=== PATIENT | female | born 1980 | race Caucasian/White ===

== ENCOUNTER 2017-11-18 17:00 | Emergency (ER) | payer OTHER, SELFPAY ==
--- OUTSIDE RECORDS SUMMARY | 2017-11-18 17:02 | XMS REPORT | Continuity of Care Document ---
:1980 Author Organization Interface Problems Problem Status Onset Date Classification Date Comments Source Reported Medications Medication Details Route Status Patient Ordering Order Source Instructions Provider Date Allergies, Adverse Reactions, Alerts Substance Category Reaction Severity Reaction Status Date Comments Source type Reported Immunizations Immunization Date Given Site Status Last Updated Comments Source Results Order Results Value Reference Date Interpretation Comments Source Name Range Vital Signs Vital Sign Value Date Comments Source Encounters Location Location Encounter Encounter Reason Attending ADM DC Status Source Details Type Number For Provider Date Date Visit Outpatient [id number] RODRIGO 02/28 [facility] Procedures Procedure Code Date Perfomer Comments Source
[2017-11-18] MEDS ORDERED: MORPHINE 4 MG/ML SYR ONE ×2 (17:30→19:57)
[2017-11-18] MEDS ORDERED: NA CHLORIDE 0.9% 1,000 ML ONE (17:31)
[2017-11-18] MEDS ORDERED: ONDANSETRON 4 MG/2 ML VIAL ONE ×2 (17:31→19:57)
[2017-11-18 18:06] LABS: Potassium 4.1 mmol/L (3.5-5.1)
[2017-11-18 18:52] LABS: Absolute Lymphocytes (CBC) 1.9 K/uL (0.7-4.9); Absolute Monocytes 0.8 K/uL (0.1-1.3); Basophils % 0.6 % (0-1.3); Eosinophils % 0.7 % (0-4.4); Hematocrit 41.6 % (36.0-45.0); Lymphocytes % 24.8 % (15.3-44.8); MCH 32.2 pg (27.0-35.0); MCV 96.3 fL (80-100); MPV 8.6 fL (7.6-11.3); Monocytes % 9.8 % (3.3-12.3); RBC Red Blood Cell Count 4.32 M/uL (3.86-4.86)
--- NOTE | 2017-11-18 19:51 | RAD REPORT ---
EXAM DESCRIPTION: CT - Abdomen Pelvis W Contrast - 11/18/2017 7:26 pm CLINICAL HISTORY: ABD PAIN right lower quadrant pain TECHNIQUE: Computed axial tomography of the abdomen pelvis was obtained. 100 cc Isovue-300 was admin istered intravenously. Oral contrast was not requested which limits evaluation of bowel. All CT scans are performed using dose optimization technique as appropriate and may include automated exposure control or mA/KV adjustment according to patient size. FINDINGS: The liver, spleen, pancreas, adrenal and kidneys appear unremarkable. There is no evidence of diverticulitis. The appendix is normal. A hysterectomy has been performed A small umbilical hernia is present. An adnexal mass is not seen IMPRESSION: No acute abnormality is displayed.
[2017-11-18 20:39] LABS: Urine Blood NEGATIVE (NEG); Urine Glucose NEGATIVE (NEG); Urine Protein NEGATIVE (NEG); Urine Specific Gravity 1.015 (1.005-1.030); Urine pH 8.5 (5.0-7.0)
--- NOTE | 2017-11-18 20:56 | ER ---
Nurse's Notes [facility] Name: Gali Sagastume Age: 37 yrs Sex: Female : 1980 Arrival Date: 11/18/2017 Time: 17:03 Bed 13 Private MD: Jodie De La Fuente Diagnosis: Generalized abdominal pain Presentation: 11/18 17:11 Presenting complaint: Patient states: "i have this abd pain since this morning, right hj here on my R lower abd, i feel nauseated too, denies diarrhea, constipation, denies fever, reports chills;. Transition of care: patient was not received from another setting of care. Onset of symptoms was November 18, 2017. Risk Assessment: Do you want to hurt yourself or someone else? Patient reports no desire to harm self or others. Initial Sepsis Screen: Does the patient meet any 2 criteria? Yes Does the patient have a suspected source of infection? No. Patient's initial sepsis screen is negative. Care prior to arrival: None. 17:11 Method Of Arrival: Ambulatory 17:11 Acuity: LAINEY 3 hj Triage Assessment: 17:16 General: Appears in no apparent distress. uncomfortable, Behavior is calm, cooperative, hj appropriate for age. Pain: Complains of pain in abdomen. GI: Reports lower abdominal pain, nausea. 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 - Social history:: Smoking status: Patient/guardian denies using tobacco, Patient/guardian denies using alcohol. - Ebola Screening: : Patient negative for fever greater than or equal to 101.5 degrees Fahrenheit, and additional compatible Ebola Virus Disease symptoms Patient denies exposure to infectious person Patient denies travel to an Ebola-affected area in the 21 days before illness onset. Screenin:15 Abuse screen: Denies threats or abuse. Denies injuries from another. Nutritional hj screening: No deficits noted. Tuberculosis screening: No symptoms or risk factors identified. Fall Risk None identified. Assessment: 17:16 GI: Bowel sounds present X 4 quads. Abd is soft Abdomen is tender to palpation. hj 17:16 General: Appears in no apparent distress. uncomfortable, Behavior is calm, cooperative, hj appropriate for age. Pain: Complains of pain in abdomen and right lower quadrant. Neuro: Level of Consciousness is awake, alert, obeys commands, Oriented to person, place, time, situation, Appropriate for age. Cardiovascular: Capillary refill < 3 seconds Patient's skin is warm and dry. Respiratory: Airway is patent Respiratory effort is even, unlabored, Respiratory pattern is regular, symmetrical. GI: Reports lower abdominal pain, nausea. : No signs and/or symptoms were reported regarding the genitourinary system. EENT: No signs and/or symptoms were reported regarding the EENT system. Derm: No signs and/or symptoms reported regarding the dermatologic system. Musculoskeletal: No signs and/or symptoms reported regarding the musculoskeletal system. 17:48 Reassessment: Patient and/or family updated on plan of care and expected duration. Pain hj level reassessed. Patient is alert, oriented x 3, equal unlabored respirations, skin warm/dry/pink. drinking oral contrast;l. 17:50 Reassessment: finished drinking contrast, healthcare technician informed;. hj 18:22 Reassessment: Patient and/or family updated on plan of care and expected duration. Pain hj level reassessed. Patient is alert, oriented x 3, equal unlabored respirations, skin warm/dry/pink. pain went down to 6/10;. 18:34 Reassessment: Patient and/or family updated on plan of care and expected duration. Pain hj level reassessed. Patient is alert, oriented x 3, equal unlabored respirations, skin warm/dry/pink. labs for re collect;. 19:15 General: Appears in no apparent distress. Behavior is calm, cooperative, appropriate ea for age. Pain: Complains of pain in right lower quadrant and right upper quadrant. Neuro: Level of Consciousness is awake, alert, obeys commands, Oriented to person, place, time, situation, Appropriate for age. Cardiovascular: Heart tones S1 S2 present Patient's skin is warm and dry. Respiratory: Airway is patent Respiratory effort is even, unlabored, Respiratory pattern is regular, symmetrical, Breath sounds are clear bilaterally. GI: Bowel sounds present X 4 quads. Abd is soft X 4 quads Abdomen is tender to palpation X 4 quads. Reports lower abdominal pain, nausea. : No signs and/or symptoms were reported regarding the genitourinary system. EENT: No signs and/or symptoms were reported regarding the EENT system. Derm: No signs and/or symptoms reported regarding the dermatologic system. Musculoskeletal: No signs and/or symptoms reported regarding the musculoskeletal system. 20:50 Reassessment: Patient and/or family updated on plan of care and expected duration. Pain ea level reassessed. Patient is alert, oriented x 3, equal unlabored respirations, skin warm/dry/pink. 21:34 Reassessment: Patient and/or family updated on plan of care and expected duration. Pain ea level reassessed. Patient is alert, oriented x 3, equal unlabored respirations, skin warm/dry/pink. Discharge instructions given to patient, verbalized the understanding of instructions. Patient states feeling better. Patient states symptoms have improved. Vital Signs: 17:15 BP 132 / 68; Pulse 76; Resp 18; Temp 97.5(O); Pulse Ox 100% on R/A; Weight 81.65 kg; hj Height 5 ft. 4 in. (162.56 cm); Pain 8/10; 18:22 BP 130 / 66; Pulse 75; Resp 18; Pulse Ox 100% on R/A; hj 19:10 BP 112 / 62; Pulse 66; Resp 18; Pulse Ox 99% on R/A; ea 20:30 BP 107 / 73; Pulse 72; Resp 66; Pulse Ox 98% on R/A; ea 21:20 BP 117 / 80; Pulse 72; Resp 18; Temp 97.8; Pulse Ox 98% ; Pain 0/10; ea 17:15 Body Mass Index 30.90 (81.65 kg, 162.56 cm) ED Course: 17:03 Patient arrived in ED. mr 17:04 Jodie De La Fuente MD is Private Physician. mr 17:06 Tyra Bledsoe FNP-C is [facility]. kb 17:06 Yoav Castro MD is Attending Physician. kb 17:10 Sinan Mckenna, NICOLA is Primary Nurse. hj 17:10 Initial lab(s) drawn, by ca, sent to lab. Inserted saline lock: 22 gauge in left hj forearm, using aseptic technique. Blood collected. 17:12 Triage completed. hj 17:16 Arm band placed on right wrist. hj 17:16 Patient has correct armband on for positive identification. Placed in gown. Bed in low hj position. Call light in reach. Side rails up X 1. Adult w/ patient. 19:00 Report given to NICOLA Quintana. hj 19:10 Lilian Gilliland RN is Primary Nurse. ea 19:26 CT Abd/Pelvis - W/Contrast In Process Unspecified. EDMS 21:34 No provider procedures requiring assistance completed. IV discontinued, intact, ea bleeding controlled, No redness/swelling at site. Pressure dressing applied. Administered Medications: 17:10 Drug: NS 0.9% 1000 ml Route: IV; Rate: 1000 ml; Site: left forearm; hj 17:42 Follow up: IV Status: Infusion continued hj 17:10 Drug: Zofran 4 mg Route: IVP; Site: left forearm; hj 17:41 Follow up: Response: No adverse reaction; Nausea is decreased hj 17:10 Drug: morphine 4 mg Route: IVP; Site: left forearm; hj 17:41 Follow up: Response: No adverse reaction; Pain is decreased hj 20:00 Drug: morphine 4 mg Route: IVP; Site: left forearm; ea 20:35 Follow up: Response: No adverse reaction; Pain is decreased ea 20:00 Drug: Zofran 4 mg Route: IVP; Site: left forearm; ea 20:30 Follow up: Response: No adverse reaction ea 21:26 Drug: Bentyl 20 mg Route: PO; ea 21:39 Follow up: Response: No adverse reaction; Medication administered at discharge. ea Outcome: 20:56 Discharge ordered by . kb 21:35 Discharged to home ambulatory, with significant other. ea 21:35 Condition: improved 21:35 Discharge instructions given to patient, Instructed on discharge instructions, follow up and referral plans. medication usage, Demonstrated understanding of instructions, follow-up care, medications, Prescriptions given X 2. 21:37 Patient left the ED. ea Signatures: Dispatcher [employer] EDTyra Reyes, JUDE BATES-Hannah Leonardo Henry, RN RN hj Antunez, Elena, RN RN ea
--- NOTE | 2017-11-18 20:56 | EDPHYS ---
Physician Documentation [facility] Name: Gali Sagastume Age: 37 yrs Sex: Female : 1980 Arrival Date: 11/18/2017 Time: 17:03 Bed 13 Private MD: Jodie De La Fuente ED Physician Yoav Castro HPI: 11/18 17:14 This 37 yrs old Female presents to ER via Ambulatory with complaints of kb Abdominal Pain, Nausea. 17:14 The patient presents with abdominal pain right lower quadrant. Onset: The kb symptoms/episode began/occurred this morning. The symptoms radiate to right back. Associated signs and symptoms: Pertinent positives: nausea, Pertinent negatives: anorexia, blood in stools, chest pain, constipation, diarrhea, dysuria, fever, headache, hematuria, palpitations, shortness of breath, vaginal discharge, vomiting, vomiting blood. The symptoms are described as constant. Modifying factors: The symptoms are alleviated by nothing, the symptoms are aggravated by nothing. Severity of pain: At its worst the pain was moderate in the emergency department the pain is unchanged. The patient has not experienced similar symptoms in the past. The patient has not recently seen a physician. 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 - Social history:: Smoking status: Patient/guardian denies using tobacco, Patient/guardian denies using alcohol. - Ebola Screening: : Patient negative for fever greater than or equal to 101.5 degrees Fahrenheit, and additional compatible Ebola Virus Disease symptoms Patient denies exposure to infectious person Patient denies travel to an Ebola-affected area in the 21 days before illness onset. ROS: 17:14 Constitutional: Negative for fever, chills, and weight loss, ENT: Negative for injury, kb pain, and discharge, Neck: Negative for injury, pain, and swelling, Cardiovascular: Negative for chest pain, palpitations, and edema, Respiratory: Negative for shortness of breath, cough, wheezing, and pleuritic chest pain, Back: Negative for injury and pain, : Negative for injury, bleeding, discharge, and swelling, MS/Extremity: Negative for injury and deformity, Skin: Negative for injury, rash, and discoloration, Neuro: Negative for headache, weakness, numbness, tingling, and seizure. 17:14 Abdomen/GI: Positive for abdominal pain, nausea, Negative for vomiting, diarrhea, constipation, abdominal cramps, abdominal distension, anorexia. Exam: 17:14 Constitutional: This is a well developed, well nourished patient who is awake, alert, kb and in no acute distress. Head/Face: Normocephalic, atraumatic. ENT: Nares patent. No nasal discharge, no septal abnormalities noted. Tympanic membranes are normal and external auditory canals are clear. Oropharynx with no redness, swelling, or masses, exudates, or evidence of obstruction, uvula midline. Mucous membranes moist. Neck: Trachea midline, no thyromegaly or masses palpated, and no cervical lymphadenopathy. Supple, full range of motion without nuchal rigidity, or vertebral point tenderness. No Meningismus. Chest/axilla: Normal chest wall appearance and motion. Nontender with no deformity. No lesions are appreciated. Cardiovascular: Regular rate and rhythm with a normal S1 and S2. No gallops, murmurs, or rubs. Normal PMI, no JVD. No pulse deficits. Respiratory: Lungs have equal breath sounds bilaterally, clear to auscultation and percussion. No rales, rhonchi or wheezes noted. No increased work of breathing, no retractions or nasal flaring. Back: No spinal tenderness. No costovertebral tenderness. Full range of motion. Skin: Warm, dry with normal turgor. Normal color with no rashes, no lesions, and no evidence of cellulitis. MS/ Extremity: Pulses equal, no cyanosis. Neurovascular intact. Full, normal range of motion. Neuro: Awake and alert, GCS 15, oriented to person, place, time, and situation. Cranial nerves II-XII grossly intact. Motor strength 5/5 in all extremities. Sensory grossly intact. Cerebellar exam normal. Normal gait. 17:14 Abdomen/GI: Inspection: abdomen appears normal, Bowel sounds: normal, in all quadrants, Palpation: soft, in all quadrants, mild abdominal tenderness, in the right upper quadrant and right lower quadrant. Vital Signs: 17:15 BP 132 / 68; Pulse 76; Resp 18; Temp 97.5(O); Pulse Ox 100% on R/A; Weight 81.65 kg; hj Height 5 ft. 4 in. (162.56 cm); Pain 8/10; 18:22 BP 130 / 66; Pulse 75; Resp 18; Pulse Ox 100% on R/A; hj 19:10 BP 112 / 62; Pulse 66; Resp 18; Pulse Ox 99% on R/A; ea 20:30 BP 107 / 73; Pulse 72; Resp 66; Pulse Ox 98% on R/A; ea 21:20 BP 117 / 80; Pulse 72; Resp 18; Temp 97.8; Pulse Ox 98% ; Pain 0/10; ea 17:15 Body Mass Index 30.90 (81.65 kg, 162.56 cm) hj MDM: 17:08 Patient medically screened. kb 17:14 Data reviewed: vital signs, nurses notes. Data interpreted: Pulse oximetry: on room air kb is 100 %. Interpretation: normal. 20:52 Counseling: I had a detailed discussion with the patient and/or guardian regarding: the kb historical points, exam findings, and any diagnostic results supporting the discharge/admit diagnosis, lab results, radiology results, the need for outpatient follow up, a family practitioner, to return to the emergency department if symptoms worsen or persist or if there are any questions or concerns that arise at home. 11/18 17:09 Order name: CBC with Diff; Complete Time: 18:59 kb 11/18 17:09 Order name: Basic Metabolic Panel; Complete Time: 18:14 kb 11/18 18:10 Order name: Urine Dipstick--Ancillary (enter results); Complete Time: 20:48 eb 11/18 17:09 Order name: CT Abd/Pelvis - W/Contrast; Complete Time: 19:59 kb 11/18 17:09 Order name: IV Saline Lock; Complete Time: 17:37 kb 11/18 17:09 Order name: Labs collected and sent; Complete Time: 17:37 kb 11/18 17:09 Order name: Urine Dipstick-Ancillary (obtain specimen); Complete Time: 18:06 kb 11/18 18:02 Order name: Labs - recollect needed; Complete Time: 18:59 eb Administered Medications: 17:10 Drug: NS 0.9% 1000 ml Route: IV; Rate: 1000 ml; Site: left forearm; hj 17:42 Follow up: IV Status: Infusion continued hj 17:10 Drug: Zofran 4 mg Route: IVP; Site: left forearm; hj 17:41 Follow up: Response: No adverse reaction; Nausea is decreased hj 17:10 Drug: morphine 4 mg Route: IVP; Site: left forearm; hj 17:41 Follow up: Response: No adverse reaction; Pain is decreased hj 20:00 Drug: morphine 4 mg Route: IVP; Site: left forearm; ea 20:35 Follow up: Response: No adverse reaction; Pain is decreased ea 20:00 Drug: Zofran 4 mg Route: IVP; Site: left forearm; ea 20:30 Follow up: Response: No adverse reaction ea 21:26 Drug: Bentyl 20 mg Route: PO; ea 21:39 Follow up: Response: No adverse reaction; Medication administered at discharge. ea Disposition: 11/18/17 20:56 Discharged to Home. Impression: Generalized abdominal pain. - Condition is Stable. - Discharge Instructions: Abdominal Pain, Adult, [id number]. - Prescriptions for Bentyl 20 mg Oral Tablet - take 1 tablet by ORAL route every 6 hours As needed; 20 tablet. Zofran 4 mg Oral Tablet - take 1 tablet by ORAL route every 6 hours As needed; 20 tablet. - Medication Reconciliation Form, Thank You Letter, Antibiotic Education, Prescription Opioid Use form. - Follow up: Emergency Department; When: As needed; Reason: Worsening of condition. Follow up: Private Physician; When: 2 - 3 days; Reason: Recheck today's complaints, Continuance of care, Re-evaluation by your physician. Addendum: 11/22/2017 07:15 Co-signature as Attending Physician, Yoav Castro MD I agree with the assessment and k dr plan of care. Signatures: Dispatcher [employer] EDMS Tyra Bledsoe, PRODUCT MANAGER E COMMERCE-C PRODUCT MANAGER E COMMERCE-Yoav Santos MD MD kdr Joaquin, Henry RN Lilian Vigil RN RN ea Botello, Elizabeth eb Corrections: (The following items were deleted from the chart) 11/18 21:37 20:56 11/18/2017 20:56 Discharged to Home. Impression: Generalized abdominal pain. ea Condition is Stable. Discharge Instructions: Abdominal Pain, Adult, [id number]. Prescriptions for Bentyl 20 mg Oral Tablet - take 1 tablet by ORAL route every 6 hours As needed; 20 tablet, Zofran 4 mg Oral Tablet - take 1 tablet by ORAL route every 6 hours As needed; 20 tablet. and Forms are Medication Reconciliation Form, Thank You Letter, Antibiotic Education, Prescription Opioid Use. Follow up: Emergency Department; When: As needed; Reason: Worsening of condition. Follow up: Private Physician; When: 2 - 3 days; Reason: Recheck today's complaints, Continuance of care, Re-evaluation by your physician. kb
[2017-11-18] MEDS ORDERED: DICYCLOMINE HCL 10 MG CAP ONE (21:28)
[2017-11-18 21:48] VITALS: O2SAT 98
[2017-11-18 21:50] VITALS: BP 117/80; TEMP 97.8
== END 2017-11-18 21:37 | disposition home or self-care (01) ==
LOC: ER 17:00
DX: R10.84 Generalized abdominal pain (principal); K21.9 Gastro-esophageal reflux disease without esophagitis; Z88.8 Allergy status to other drugs, medicaments and biological substances
CPT/HCPCS: 36415; 74177; 80048; 81003; 85025; 96361; 96374; 96375; 99284; J2405; J7030; Q9967

== ENCOUNTER 2019-12-09 09:53 | Emergency (ER) | payer SELFPAY ==
--- OUTSIDE RECORDS SUMMARY | 2019-12-09 09:56 | XMS REPORT | Continuity of Care Document ---
:1980 Author Organization [facility] t Address [address] [place] [address] Care Team Providers Name Role Phone Emily Banks Attending Clinician Problems Condition Condition Condition Status Onset Resolution Last Treating Co mments Source Name Details Category Date Date Treatment Clinician Date Upper Upper Problem Active [facility] resp[facility] respirator Ivana kes - y y [facility] infection, infection, l [facility] Panic Panic Problem Active [facility] attacks [facility] GERD GERD Problem Active [facility] without without [facility] - esophagiti esophagiti Me moria s s l [facility] Allergic Allergic Problem [facility] Fatigue Fatigue Problem Active [facility] Bipolar Bipolar Problem Active [facility] affective, affective, Ivana kes - manic, manic, Memoria unspec unspec l [facility] Atypical Atypical Problem [facility] chest pain chest pain Ivana kes - [facility] Irritable Irritable Problem Active [facility] bowel bowel [facility] Ovarian Ovarian Problem Active [facility] cyst cyst [facility] Depression Depression Problem Active [facility] with with [facility] - anxiety anxiety [facility] l [facility] Allergies, Adverse Reactions, Alerts This patient has no known allergies or adverse reactions. Medications Ordered Filled Start Stop Current Ordering Indication Dosage Frequency Signature Comments Components Source Medication Medication Date Date Medication? Clinician (SIG) Name Name Tamsulosin Tamsulosin 2020- Yes Na De La Fuente [address] [facility] HCl HCl 12-03 [facility] 00[facility] Cipro Cipro 2020- Yes Na De La Fuente [address] [facility] 12-03 [facility] Famotidine Famotidine Yes Na De La Fuente [address] [facility] 9-14 at bedtime [facility] 00[facility]: as needed [facility] Protonix Protonix Yes Na De La Fuente [address] [facility] Fluoxetine Fluoxetine Yes Na De La Fuente [address] [facility] HCl HCl [facility] Clinics Xanax Xanax Yes Na De La Fuente [address] [facility] Procedures This patient has no known procedures. Encounters Start End Encounter Admission Attending Care Care Encounter Source Date/Time Date/Time Type Type Clinicians Facility Department ID 2019-12-04 2019-12-04 [facility] [id number] [facility] 11:04:00 11:04:00 [facility] [facility] Medicine Medicine Outpati ent [facility] 2019-12-03 2019-12-03 [facility] [id number] 00:00:00 00:00:00 Winter Diaz SENIOR DESIGN ENGINEERING SPECIALIST [id number] [facility] [id number] MATERNAL [id number] & CHILD [address] [place] [address] 2019-12-01 2019-12-01 [facility] [id number] [facility] 08:20:00 08:20:00 [facility] Medicine Medicine Outpati ent Clinics 2019-08-05 2019-08-05 [facility] [id number] [facility] 09:40:00 09:40:00 [facility] Medicine Outpati ent Clinics 2019-05-29 2019-05-29 [facility] [id number] [facility] 10:40:00 10:40:00 [facility] 2019-05-19 2019-05-19 Outpatient Norma Abdalla [id number] [facility] 09:[facility] 09[facility]42[facility]00 [facility] Results This patient has no known results.
--- OUTSIDE RECORDS SUMMARY | 2019-12-09 09:56 | XMS REPORT | Summary of Care ---
:1980 Author Organization [facility] Address [address] [place] [address] Care Team Providers Name Role Phone Emily Banks [facility] Primary Care Provider Reason for Visit Reason Comments Well Woman Exam Encounter Details Date Type Department Care Team Description 11/25/2019 Office Visit [facility] Banks for other contraceptive management (Primary Dx); Sandro Diaz SILAS History of partial hysterectomy; [address] Well woman exam; Street ESTELITA A Dysuria; [place] [phone] Family history of thyroid disease; [id number] Family history of diabetes mellitus; [phone] UTI sympt oms Allergies Active Allergy Reactions Severity Noted Date Comments Omeprazole Magnesium Hives 07/14/2016 documented as of this encounter (statuses as of 11/25/2019) Medications Medication Sig Dispensed Refills Start Date End Date Status PANTOPRAZOLE SODIUM Take 40 mg by 0 Active (PROTONIX mouth daily. ORAL)Indications: Atypical chest pain ergocalciferol, Take 50,000 Units 0 Active vitamin d2, 50,000 by mouth daily. unit capsule ALPRAZolam 0.25 mg Take 0.25 mg by 0 Active tablet mouth daily. escitalopram oxalate TAKE ONE (1) 5 06/27/2018 Active 20 mg tablet TABLET(S) BY MOUTH ONCE A DAY. cephALEXin 500 mg Take 1 capsule by 40 capsule 0 07/23/2018 Active capsuleIndications: mouth 4 (four) Dysuria, Urinary times daily. frequency lurasidone (LATUDA) 20 Take by mouth 0 Active mg tablet daily. SERTraline (ZOLOFT) 25 Take 25 mg by 0 Active mg tablet mouth daily. documented as of this encounter (statuses as of 11/25/2019) Active Problems Problem Noted Date UTI (urinary tract infection) 04/21/2019 History of partial hysterectomy 11/19/2018 Overview: Reports still has ovaries History of depression 11/19/2018 Overview: Currently on zolft and latuda, managed b y [facility] History of anxiety 11/19/2018 Well woman exam 09/15/2015 Obesity (BMI 30-39.9) 11/11/2014 Overview: ICD10 Diagnosis Term Tubular Splitting Machine Tender Utility Contraceptive management 09/16/2014 IBS (irritable bowel syndrome) 05/13/2012 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 documented as of this encounter (statuses as of 11/25/2019) Resolved Problems Problem Noted Date Resolved Date Dysuria 11/07/2017 11/19/2018 Urinary frequency 11/07/2017 11/19/2018 Urgency of urination 11/07/2017 11/19/2018 Dysmenorrhea 04/09/2015 11/19/2018 Bacterial vaginosis 04/09/2015 09/15/2015 Constipation 11/12/2014 01/07/2015 Overview: ICD10 Diagnosis Term Tubular Splitting Machine Tender Utility BV (bacterial vaginosis) 11/11/2014 01/07/2015 Female genital symptoms 11/11/2014 11/11/2014 Overview: ICD10 Diagnosis Term Tubular Splitting Machine Tender Utility Abdominal pain, other specified site 11/11/2014 Obesity complicating , childbirth, or puerperium, 0 09/16/2014 11/11/2014 antepartum Overview: ICD10 Diagnosis Term Tubular Splitting Machine Tender Utility Encounter for routine gynecological examination 09/16/2014 11/11/2014 Overview: ICD10 Diagnosis Term Tubular Splitting Machine Tender Utility Mood swings 09/16/2014 11/11/2014 Multiparity 07/25/2012 09/16/2014 Perineal laceration with delivery, first degree, delivered 0 07/24/2012 08/08/2012 Threatened premature labor, antepartum(644.03) 07/17/2012 07/24/2012 Glycosuria 05/30/2012 07/24/2012 Overview: Normal 3 hour GTT. Fasting- 70, 1 hour - 137, 2 hour- 149, 3 hour - 79. Other threatened labor, antepartum 05/23/201207/24 Supervision of other high-risk 05/13/2012 07/24/2012 Overview: ICD10 Diagnosis Term Tubular Splitting Machine Tender Utility High-risk 05/13/2012 07/24/2012 Prior labor, antepartum 05/13/2012 07/25/19 13 with poor reproductive history- prior PTB 05/13/19 13 07/24/2012 documented as of this encounter (statuses as of 11/25/2019) Immunizations Name Administration Dates Next Due TDAP 06/03/2012 documented as of this encounter Social History Tobacco Use Types Packs/Day Years Used Date Never Smoker Smokeless Tobacco: Never Used Alcohol Use Drinks/Week oz/Week Comments Yes 0 Standard drinks or equivalent 0.0 socially Sex Assigned at Date Recorded Not on file COVID-19 Exposure Response Date Recorded In the last month, have you been in contact with No / Unsure 11/25/2019 8:45 AM CDT someone who was confirmed or suspected to have Coronavirus / COVID-19? documented as of this encounter Last Filed Vital Signs Vital Sign Reading Time Taken Comments Blood Pressure 118/74 11/25/2019 9:03 AM CDT Pulse 57 11/25/2019 9:03 AM CDT Temperature 36.6 C (97.8 F) 11/25/2019 9:03 AM CDT Respiratory Rate 16 11/25/2019 9:03 AM CDT Oxygen Saturation - - Inhaled Oxygen Concentration - - Weight 92.6 kg (204 lb 1 oz) 11/25/2019 9:03 AM CDT Height 162.6 cm (5' 4") 11/25/2019 9:03 AM CDT Body Mass Index 35.03 11/25/2019 9:03 AM CDT documented in this encounter Progress Notes Winter Banks, WHCNP - 11/25/2019 8:45 AM CDT Chief complaint: Chief Complaint Patient presents with Well Woman Exam HPI: the patient is here today for WWE and contraceptive management. She reports she is doing well for the most part, but reports uti symptoms for the past week, she reports she took AZO tablets otc last 2 days ago. She denies any new sexual partners and reports hysterectomy for control and is pleased with her method. She desires lab work today, reporting familty history of thyroid and diabetes. Pt (denies) current or past physical, sexual or emotional abuse. Histories OB History Para Term AB Living 3 2 2 0 1 2 SAB TAB Ectopic Multiple Live Births 1 2 # Outcome Date GA Lbr Fernando/2nd Weight Sex Delivery Anes PTL Lv 3 Term 07/24/12 37w0d 6 lb 8 oz (2.948 kg) M NORMAL SPONT COLIN 2 Term 09/08/07 37w0d 12:00 6 lb 10 oz (3.005 kg) M NORMAL SPONT EPIDURAL Y COLIN Comments: delivery 1 SAB 10w0d Past Medical History: Diagnosis Date Abnormal Pap smear 2003 colposcopy performed Anxiety 2002 pt on medications, managed by [facility] Bipolar 1 disorder 2018 pt on meds, managed by [facility] BV (bacterial vaginosis) 11/11/2014 Depression 2018 pt on meds, managed by [facility] Dysmenorrhea 04/09/2015 HPV in female Mood swings 09/16/2014 Oral herpes simplex, not currently active STD (sexually transmitted disease) Family History Problem Relation Age of Onset Hypertension Father Neurological Father Parkinsons disease Father Depression Mother High cholesterol Mother Ovarian Cancer Paternal Aunt Arthritis NoFHx Asthma NoFHx defects NoFHx Breast Cancer NoFHx Colon Cancer NoFHx Uterine Cancer NoFHx Cancer NoFHx Diabetes NoFHx Genetic NoFHx Heart NoFHx Mental retardation NoFHx Osteoporosis NoFHx Psychiatry NoFHx Other - see comments NoFHx Family Status Relation Name Status Fa Alive Mo Alive PAunt NoFHx (Not Specified) Past Surgical History: Procedure Laterality Date HYSTERECTOMY 2016 Partial per pt report. Social History Socioeconomic History Marital status: Spouse name: Not on file Number of children: Not on file Years of education: Not on file Highest education level: Not on file Occupational History Not on file Social Needs Financial resource strain: Not on file Food insecurity Worry: Not on file Inability: Not on file Transportation needs Medical: Not on file Non-medical: Not on file Tobacco Use Smoking status: Never Smoker Smokeless tobacco: Never Used Substance and Sexual Activity Alcohol use: Yes Alcohol/week: 0.0 standard drinks Comment: socially Drug use: No Sexual activity: Yes Partners: Male control/protection: Surgical Comment: Last intercourse:11/11/2019 Lifestyle Physical activity Days per week: Not on file Minutes per session: Not on file Stress: Not on file Relationships Social connections Talks on phone: Not on file Gets together: Not on file Attends church service: Not on file Active member of club or organization: Not on file Attends meetings of clubs or organizations: Not on file Relationship status: Not on file Intimate partner violence Fear of current or ex partner: Not on file Emotionally abused: Not on file Physically abused: Not on file Forced sexual activity: Not on file Other Topics Concern Not on file Social History Narrative Denies domestic violence or abuse. Patient lives with and children. Patient feels safe at home. Social History Substance and Sexual Activity Sexual Activity Yes Partners: Male control/protection: Surgical Comment: Last intercourse:11/11/2019 Labs Labs are pending. Radiology No new radiology. Allergies Gali is allergic to prilosec [omeprazole magnesium]. Medications Gali has a current medication list which includes the following prescription(s): lurasidone, sertraline, cephalexin, escitalopram oxalate, alprazolam, ergocalciferol (vitamin d2), and pantoprazole sodium. Review of Systems Constitutional: Negative. HENT: Negative. Eyes: Negative. Respiratory: Negative. Breasts: Negative. Cardiovascular: Negative. Gastrointestinal: Negative. Genitourinary: Negative. Musculoskeletal: Negative. Skin: Negative. Neurological: Negative. Psychiatric/Behavioral: Negative. Endocrine: Endocrine negative BP 118/74 (BP Location: Right arm, Patient Position: Sitting, BP CUFF SIZE: Adult Medium) | Pulse 57 | Temp 36.6 C (97.8 F) (Oral) | Resp 16 | Ht 5' 4" (1.626 m) | Wt 204 lb 1 oz (92.6 kg) | LMP 02/17/2016 (Within Days) | BMI 35.03 kg/m Pregravid BMI: Could not be calculated Physical Exam Vitals reviewed. Constitutional: She is oriented to person, place, and time. She appears well- developed. Her body habitus is normal. Neck: No tenderness and no mass. No thyroid nodules and no thyromegaly palpated. No neck adenopathy. Cardiovascular: Regular rate and rhythm. No gallop, no friction rub and no murmur auscultated. No peripheral edema present. Pulmonary/Chest: Breath sounds clear to auscultation. Normal inspiratory effort. Abdominal: Abdomen is soft. No mass palpated. No tenderness present. There is no hepatosplenomegaly,splenomegaly or hepatomegaly. There is no rigidity. No hernia palpated or inspected. Neuro/Psychiatric: She has a normal mood and affect. She is oriented to person, place, and time. Skin: No lesion, no rash and no ulceration present. Lymphadenopathy: No neck adenopathy present. No axillary adenopathy present. No inguinal adenopathy present. Breast: Right breast exhibits no mass, no nipple discharge and no tenderness. Left breast exhibits no mass, no nipple discharge and no tenderness. Breasts are symmetrical. Normal left breast and normalright breast Rectal: Rectal exam with normal anal tone. No mass, no external hemorrhoid and no internal hemorrhoid palpated or inspected. External genitalia: Normal external genitalia appropriate for age. Normal hair distribution. No labial lesion. Urethral meatus: Normal urethral meatus size, location and no lesion. No prolapse present. Normal urethral meatus Urethra: Normal urethra. No urethral tenderness, no mass and no urethral scarring palpated. Bladder: Bladder has no fullness, no mass palpated and no tenderness. Normal bladder Vagina:Normal vagina. No lesion inspected. Normal estrogen effect. Normal support. No abnormal vaginal discharge found. No lesions in the vagina. Cervix: Normal cervix. No lesion. No tenderness and no discharge present. Uterus: Uterus is normal size, normal contour, normal position and non-tender. Normal uterus Adnexa: Right adnexa without tenderness, ovary enlargement or mass. Left adnexa without tenderness, ovary enlargement or mass. Normal left adnexa and normal right adnexa Anus/perineum: Normal perineum and normal anus. Assessment/Plan Return to clinic in 1 year for WWE or sooner as needed Return to clinic in 3 months for CBE for mammogram orders Rubella/VZV: immune BMI: 35 Td: 2012 Pap Smear: today Gardasil:na Mammogram/Guaiac/Colonoscopy:na Encounter for other contraceptive management (primary encounter diagnosis) History of partial hysterectomy Comment: routine Plan: as needed mgmt Well woman exam Comment: routine Plan: PAP Smear-Liquid Based, HIGH RISK HPV-THIN PREP Dysuria UTI symptoms Comment: reports Plan: POCT URINALYSIS W/O SPECIFIC GRAVITY, URINE CULTURE Family history of thyroid disease Comment: reports Plan: THYROID STIMULATING HORMONE Family history of diabetes mellitus Comment: reports Plan: CBC WITH DIFF, GLYCOSYLATED HEMOGLOBIN (A1C) Obesity Comment: see BMI Plan: BMI discussed, appropriate weight gain, sensible diet, and exercise, increased fiber and waterintake and protein low in fat. Encouraged exercise for 30 min everyday; begin regimen with caution to prevent injury. Encouraged to decrease BMI to <25. This visit did not involve counseling and coordination that comprised more than 50% of the visit time. MICHAEL Weiss 11/25/2019 9:39 AM Stephanie Sullivan RN - 11/25/2019 8:45 AM CDT39 year old presents to the clinic for wwe. 1) Previous BCM: Hyst 2015 2) Desired BCM: None, hyst 2015 3) LMP: 2015 4) Last [place]: 11/11/2019 5) Last Pap: 09/14/2014 Results: Negative HPV: negative 6) Tdap: 2012 7) Gardasil: N/A 8) C/O: Pt having dysuria and frequency. 9) Patient denies history of physical, emotional, or sexual abuse. Patient states that she currently feels safe at home. STEPHANIE SULLIVAN RN 11/25/2019 9:12 AM documented in this encounter Plan of Treatment Date Type Specialty Care Team Description 02/24/2020 Office Visit [facility] Negra Banks [facility]NP [address] [place], [place] [address] [phone] Name Type Priority Associated Diagnoses Date/Ti me THYROID STIMULATING LAB Routine Family history of 10/2019 9:46 AM HORMONE thyroid disease CDT CBC WITH DIFF LAB Routine Family history of 0 9:46 AM diabetes mellitus CDT GLYCOSYLATED HEMOGLOBIN LAB Routine Family history of 11/25/2019 9:46 AM (A1C) diabetes mellitus CDT URINE CULTURE LAB Routine UTI symptoms 11/25/2019 9: 46 AM CDT PAP Smear-Liquid Based LAB Routine Well woman exam 9:55 AM CDT HIGH RISK HPV-THIN PREP LAB Routine Well woman exam 0 11/25/2019 9:55 AM CDT Health Maintenance Due Date Last Done Comments Breast Cancer Screening 03/21/2020 03/21/2019 (MAMMOGRAM) Depression Screening 07/28/2020 07/29/2019 INFLUENZA VACCINE (#1) 2020 Postponed from 11/18/2019 (Vacc ine not available) PAP SMEAR 12/18/2020 12/18/2017, 09/14/2014, 02/03/2011, Additional history exists DTaP,Tdap,and Td Vaccines 06/03/2022 06/03/2012 (2 - Td) PNEUMOCOCCAL 0-64 YEARS Aged Out No longe r eligible COMBINED SERIES based on patient 's age to complete this topic documented as of this encounter Procedures Procedure Name Priority Date/Time Associated Comments Diagnosis POCT URINALYSIS W/O Routine 11/25/2019 9:10 AM Dysuria R esults for this SPECIFIC GRAVITY CDT procedure a re in the results section. documented in this encounter Results POCT URINALYSIS W/O SPECIFIC GRAVITY (11/25/2019 9:10 AM CDT) Pathologist Sig nature POCT PH U 6 5 - 8 mg/dl POCT U LEUK EST Trace Negative - Negative POCT U NIT Neg Negative - Negative POCT U PROT Trace Negative - Negative POCT U GLU Neg Negative - Negative POCT U KETONE None Negative - Negative POCT U BLD Neg Negative - Negative Specimen Urine - URINE, CLEAN CATCH documented in this encounter Visit Diagnoses Diagnosis Encounter for other contraceptive manage ment - Primary History of partial hysterectomy Well woman exam Routine general medical examination at a health care facility Dysuria Family history of thyroid disease Family history of other endocrine and me tabolic diseases Family history of diabetes mellitus UTI symptoms documented in this encounter Insurance Payer Benefit Plan Subscriber ID Effective Phone Address Typ e / Group Dates [facility] [id number] 2017-Prese [phone] Medicaid WOMEN nt [address] [place] [address] documented as of this encounter Advance Directives Type Date Recorded Patient Intervention Manager Explanati on Advance Directives and Living Will Power of Bar Hostess Name Relationship Healthcare Agent Communication Relationship Ray Sagastume Spouse Health Care Agent
--- OUTSIDE RECORDS SUMMARY | 2019-12-09 09:57 | XMS REPORT | Summary of Care ---
:1980 Author Organization [facility] Address [address] [place] [address] Care Team Providers Name Role Phone Emily Banks [facility] Primary Care Provider Reason for Visit Reason Comments Results Encounter Details Date Type Department Care Team Description 12/02/2019 [facility] [address] [place] [address] Allergies Active Allergy Reactions Severity Noted Date Comments Omeprazole Magnesium Hives 07/14/2016 documented as of this encounter (statuses as of 12/03/2019) Medications Medication Sig Dispensed Refills Start Date [...] as of this encounter (statuses as of 12/03/2019) Active Problems Problem Noted Date UTI (urinary tract infection) 04/21/2019 History of partial hysterectomy 11/19/2018 Overview: Reports still has ovaries History of depression 11/19/2018 Overview: Currently on zolft and latuda, managed b y [facility] History of anxiety 11/19/2018 Well woman exam 09/15/2015 Obesity (BMI 30-39.9) 11/11/2014 Overview: ICD10 Diagnosis Term Chiller Technician Utility Contraceptive management 09/16/2014 IBS (irritable bowel syndrome) 05/13/2012 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 documented as of this encounter (statuses as of 12/03/2019) Resolved Problems Problem Noted Date Resolved Date Dysuria 11/07/2017 11/19/2018 Urinary frequency 11/07/2017 11/19/2018 Urgency of urination 11/07/2017 11/19/2018 Dysmenorrhea 04/09/2015 11/19/2018 Bacterial vaginosis 04/09/2015 09/15/2015 Constipation 11/12/2014 01/07/2015 Overview: ICD10 Diagnosis Term Chiller Technician Utility BV (bacterial vaginosis) 11/11/2014 01/07/2015 Female genital symptoms 11/11/2014 11/11/2014 Overview: ICD10 Diagnosis Term Chiller Technician Utility Abdominal pain, other specified site 11/11/2014 Obesity complicating , childbirth, or puerperium, 0 09/16/2014 11/11/2014 antepartum Overview: ICD10 Diagnosis Term Chiller Technician Utility Encounter for routine gynecological examination 09/16/2014 11/11/2014 Overview: ICD10 Diagnosis Term Chiller Technician Utility Mood swings 09/16/2014 11/11/2014 Multiparity 07/25/2012 09/16/2014 Perineal laceration with delivery, first degree, delivered 0 07/24/2012 08/08/2012 Threatened premature labor, antepartum(644.03) 07/17/2012 07/24/2012 Glycosuria 05/30/2012 07/24/2012 Overview: Normal 3 hour GTT. Fasting- 70, 1 hour - 137, 2 hour- 149, 3 hour - 79. Other threatened labor, antepartum 05/23/201207/24 Supervision of other high-risk 05/13/2012 07/24/2012 Overview: ICD10 Diagnosis Term Chiller Technician Utility High-risk 05/13/2012 07/24/2012 Prior labor, antepartum 05/13/2012 07/25/19 13 with poor reproductive history- prior PTB 05/13/19 13 07/24/2012 documented as of this encounter (statuses as of 12/03/2019) Immunizations Name Administration Dates Next Due TDAP [...] of this encounter Last Filed Vital Signs Not on filedocumented in this encounter Miscellaneous Notes Telephone Encounter - Jaqueline Wilson LVN - 12/03/2019 9:00 AM CDTAmber Kylah Sagastume is a 39 year old female Informed patient results were not completed yet. elephone Encounter - Praveen Martinez - 12/02/2019 7:20 AM CDTPatient would like to discuss results from urine test documented in this encounter Plan of Treatment Date Type Specialty Care Team Description 02/24/2020 [facility] [address] [place] [address] [phone] Health Maintenance Due Date Last Done Comments Breast Cancer Screening 03/21/2020 03/21/2019 (MAMMOGRAM) Depression Screening 07/28/2020 07/29/2019 INFLUENZA VACCINE (#1) 2020 Postponed from 11/18/2019 (Vacc ine not available) DTaP,Tdap,and Td Vaccines 06/03/2022 06/03/2012 (2 - Td) PAP SMEAR 11/24/2022 11/25/2019, 12/18/2017, 09/14/2014, Additional history exists PNEUMOCOCCAL 0-64 YEARS Aged Out No longe r eligible COMBINED SERIES based on patient 's age to complete this topic documented as of this encounter Results Not on filedocumented in this encounter Insurance Payer Benefit Plan Subscriber ID Effective Phone Address Typ e / Group Dates [id number] 2017-Alfredo [phone] Medicaid WOMEN [address] [place] [address] documented as of this encounter Advance Directives Type Date Recorded Patient Quality Control Lab Technician Explanati on Advance Directives and Living Will Power of Range Aide Name Relationship Healthcare Agent Communication Relationship Ray Sagastume Spouse Health Care Agent
--- OUTSIDE RECORDS SUMMARY | 2019-12-09 09:57 | XMS REPORT ---
:1980 Author Organization [employer] Care Team Providers Name Role Phone De La Fuente, Na Provider Role Unavailable Allergies, Adverse Reactions, Alerts Substance Reaction Event Type N.K.D.A. Info Not Available Non Drug Allergy Problems Problem Type Condition Code Onset Dates Condition Statu s Problem Upper respiratory infection, acute J06.9 Active Problem Panic attacks F41.0 Active Problem GERD without esophagitis K21.9 Act bruna Assessment GERD without esophagitis K21.9 Act bruna Assessment Panic attacks F41.0 Active Problem Allergic rhinitis J30.9 Active Problem Fatigue R53.83 Active Problem Bipolar affective, manic, unspec F31.10 Active Problem Atypical chest pain R07.89 Active Problem Irritable bowel K58.9 Active Problem Ovarian cyst N83.20 Active Problem Depression with anxiety F41.8 Acti ve Medications Medication Code Code Instructions Start End Status Dosage System Date Date Famotidine ND 19834167400 40 MG Orally Nov 30, Active 1 t ablet Once a day 2020 at bedtime as needed Xanax ND 28834776891 0.25 MG Orally Active 1 tab let Twice a day Fluoxetine HCl ND 80336248051 10 MG Orally Active 1 capsule Once a day Protonix ND 84067534310 40 MG Orally Active 1 tabl et Once a day Results No Known Results Summary Purpose eClinicalWorks Submission
--- OUTSIDE RECORDS SUMMARY | 2019-12-09 09:57 | XMS REPORT | Summary of Care ---
:1980 Author Organization [facility] Address [address] [place] [address] Care Team Providers Name Role Phone Emily Banks [facility] Primary Care Provider Reason for Visit Reason Comments Well Woman Exam Encounter Details Date Type Department Care Team Description 11/25/2019 Office Visit [facility] Winter Banks for other contraceptive management (Primary Dx); Sandro Diaz SILAS History of partial hysterectomy; [address] Well woman exam; Street ESTELITA A Dysuria; [place] [phone] Family history of thyroid disease; [address] Family history of diabetes mellitus; [phone] UTI sympt oms Allergies Active Allergy Reactions [...] on zolft and latuda, managed b [facility] History of anxiety 11/19/2018 Well woman exam 09/15/2015 Obesity (BMI 30-39.9) 11/11/2014 Overview: ICD10 Diagnosis Term Wash Barrel Leader Utility Contraceptive management 09/16/2014 IBS (irritable bowel syndrome) 05/13/2012 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 documented as of this encounter (statuses as of 11/25/2019) Resolved Problems Problem Noted Date Resolved Date Dysuria 11/07/2017 11/19/2018 Urinary frequency 11/07/2017 11/19/2018 Urgency of urination 11/07/2017 11/19/2018 Dysmenorrhea 04/09/2015 11/19/2018 Bacterial vaginosis 04/09/2015 09/15/2015 Constipation 11/12/2014 01/07/2015 Overview: ICD10 Diagnosis Term Wash Barrel Leader Utility BV (bacterial vaginosis) 11/11/2014 01/07/2015 Female genital symptoms 11/11/2014 11/11/2014 Overview: ICD10 Diagnosis Term Wash Barrel Leader Utility Abdominal pain, other specified site 11/11/2014 Obesity complicating , childbirth, or puerperium, 0 09/16/2014 11/11/2014 antepartum Overview: ICD10 Diagnosis Term Wash Barrel Leader Utility Encounter for routine gynecological examination 09/16/2014 11/11/2014 Overview: ICD10 Diagnosis Term Wash Barrel Leader Utility Mood swings 09/16/2014 11/11/2014 Multiparity 07/25/2012 09/16/2014 Perineal laceration with delivery, first degree, delivered 0 07/24/2012 08/08/2012 Threatened premature labor, antepartum(644.03) 07/17/2012 07/24/2012 Glycosuria 05/30/2012 07/24/2012 Overview: Normal 3 hour GTT. Fasting- 70, 1 hour - 137, 2 hour- 149, 3 hour - 79. Other threatened labor, antepartum 05/23/201207/24 Supervision of other high-risk 05/13/2012 07/24/2012 Overview: ICD10 Diagnosis Term Wash Barrel Leader Utility High-risk 05/13/2012 07/24/2012 Prior labor, antepartum [...] Anxiety 2002 pt on medications, managed by [facility] Bipolar 1 disorder 2018 pt on meds, managed by [facility] BV (bacterial vaginosis) 11/11/2014 Depression 2018 pt on meds, managed by [facility] Dysmenorrhea 04/09/2015 HPV in female Mood [...] file Gets together: Not on file Attends hinduism service: Not on file Active member of [...] hyst 2015 3) LMP: 2015 4) Last Arjay: 11/11/2019 5) Last Pap: 09/14/2014 Results: Negative [...] OB Satellites Negra Banks WHCNP [address] [place], [place] [address] [phone] Name Type Priority Associated Diagnoses Date/Ti me [...] Address Typ e / Group Dates [facility] [id number] 2017-Prese [phone] Medicaid WOMEN nt 2006 [place] [address] documented as of this encounter Advance Directives Type Date Recorded 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
--- OUTSIDE RECORDS SUMMARY | 2019-12-09 09:57 | XMS REPORT | Summary of Care ---
:1980 Author Organization [facility] Address [address] [place] [address] Care Team Providers Name Role Phone Emily Banks [facility] Primary Care Provider Reason for Visit Reason Comments YEAST INFECTION Encounter Details Date Type Department Care Team Description 12/03/2019 Telephone [facility] [place] Banks, YEAST INFECTION [facility] [address] [facility] [address] [place] [address] [facility] A [phone] [place], [place] [address] [phone] Allergies Active Allergy Reactions Severity Noted Date [...] Dysuria, Urinary times daily. frequency lurasidone (LATUDA) Take by mouth 0 Active 20 mg tablet daily. SERTraline (ZOLOFT) Take 25 mg by 0 Active 25 mg tablet mouth daily. terconazole 0.4 % Insert 1 45 g 0 12/03/2019 12/06/2019 Active vaginal Applicator into creamIndications: vagina at bedtime Vaginal yeast for 3 days. 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 documented as of this encounter (statuses as of 12/03/2019) Resolved Problems Problem Noted Date Resolved Date Dysuria 11/07/2017 11/19/2018 Urinary frequency 11/07/2017 11/19/2018 Urgency of urination 11/07/2017 11/19/2018 Dysmenorrhea 04/09/2015 11/19/2018 Bacterial vaginosis 04/09/2015 09/15/2015 Constipation 11/12/2014 01/07/2015 Overview: ICD10 Diagnosis Term Consulting Sales Executive Utility BV (bacterial vaginosis) 11/11/2014 01/07/2015 Female genital symptoms 11/11/2014 11/11/2014 Overview: ICD10 Diagnosis Term Consulting Sales Executive Utility Abdominal pain, other specified site 11/11/2014 Obesity complicating , childbirth, or puerperium, 0 09/16/2014 11/11/2014 antepartum Overview: ICD10 Diagnosis Term Consulting Sales Executive Utility Encounter for routine gynecological examination 09/16/2014 11/11/2014 Overview: ICD10 Diagnosis Term Consulting Sales Executive Utility Mood swings 09/16/2014 11/11/2014 Multiparity 07/25/2012 09/16/2014 Perineal laceration with delivery, first degree, delivered 0 07/24/2012 08/08/2012 Threatened premature labor, antepartum(644.03) 07/17/2012 07/24/2012 Glycosuria 05/30/2012 07/24/2012 Overview: Normal 3 hour GTT. Fasting- 70, 1 hour - 137, 2 hour- 149, 3 hour - 79. Other threatened labor, antepartum 05/23/201207/24 Supervision of other high-risk 05/13/2012 07/24/2012 Overview: ICD10 Diagnosis Term Consulting Sales Executive Utility High-risk 05/13/2012 07/24/2012 Prior labor, antepartum [...] this encounter Miscellaneous Notes Telephone Encounter - Winter Banks WHCNP - 12/03/2019 11:47 AM CDT .Please notify the patient that yeast was identified on her pap. Meds have been sent to her pharmacyon file, please advise the patient to complete the meds as prescribed, and practice good perineal hygiene. MICHAEL Weiss 12/03/2019 11:47 AM documented in this encounter Plan of Treatment Date Type Specialty Care Team Description 02/24/2020 Office Visit [facility] Negra Banks WHCNP [address] [place], [place] [address] [phone] Health Maintenance Due Date Last Done Comments [...] Results Not on filedocumented in this encounter Visit Diagnoses Diagnosis Vaginal yeast infection - Primary Candidiasis of vulva and vagina documented in this encounter Insurance Payer Benefit Plan Subscriber ID Effective Phone Address Typ e / Group Dates [facility] [id number] 2017-Alfredo [phone] Medicaid WOMEN nt 2004 [place] [address] documented as of this encounter Advance Directives Type Date Recorded Patient Personal Development Mentor Explanati on Advance Directives and Living Will Power of Print Shop Assistant Name Relationship Healthcare Agent Communication Relationship Ray Sagastume Spouse Health Care Agent
--- OUTSIDE RECORDS SUMMARY | 2019-12-09 09:57 | XMS REPORT | Summary of Care ---
:1980 Author Organization [facility] Address [address] [place] [address] Care Team Providers Name Role Phone Emily Banks [facility] Primary Care Provider Reason for Visit Reason Comments LAB Encounter Details Date Type Department Care Team Description 12/01/2019 Ventilating Equipment Installer Visit [facility] Banks [facility] [address] [place] [address] UTI symptoms [facility] (Primary Dx) [address] [place] [address] Allergies Active Allergy Reactions Severity Noted Date Comments Omeprazole Magnesium Hives 07/14/2016 documented as of this encounter (statuses as of 12/01/2019) Medications Medication Sig Dispensed Refills Start Date [...] as of this encounter (statuses as of 12/01/2019) Active Problems Problem Noted Date UTI (urinary tract infection) 04/21/2019 History of partial hysterectomy 11/19/2018 Overview: Reports still has ovaries History of depression 11/19/2018 Overview: Currently on zolft and latuda, managed b y [facility] History of anxiety 11/19/2018 Well woman exam 09/15/2015 Obesity (BMI 30-39.9) 11/11/2014 Overview: ICD10 Diagnosis Term Hydraulic Plumber Utility Contraceptive management 09/16/2014 IBS (irritable bowel syndrome) 05/13/2012 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 documented as of this encounter (statuses as of 12/01/2019) Resolved Problems Problem Noted Date Resolved Date Dysuria 11/07/2017 11/19/2018 Urinary frequency 11/07/2017 11/19/2018 Urgency of urination 11/07/2017 11/19/2018 Dysmenorrhea 04/09/2015 11/19/2018 Bacterial vaginosis 04/09/2015 09/15/2015 Constipation 11/12/2014 01/07/2015 Overview: ICD10 Diagnosis Term Hydraulic Plumber Utility BV (bacterial vaginosis) 11/11/2014 01/07/2015 Female genital symptoms 11/11/2014 11/11/2014 Overview: ICD10 Diagnosis Term Hydraulic Plumber Utility Abdominal pain, other specified site 11/11/2014 Obesity complicating , childbirth, or puerperium, 0 09/16/2014 11/11/2014 antepartum Overview: ICD10 Diagnosis Term Hydraulic Plumber Utility Encounter for routine gynecological examination 09/16/2014 11/11/2014 Overview: ICD10 Diagnosis Term Hydraulic Plumber Utility Mood swings 09/16/2014 11/11/2014 Multiparity 07/25/2012 09/16/2014 Perineal laceration with delivery, first degree, delivered 0 07/24/2012 08/08/2012 Threatened premature labor, antepartum(644.03) 07/17/2012 07/24/2012 Glycosuria 05/30/2012 07/24/2012 Overview: Normal 3 hour GTT. Fasting- 70, 1 hour - 137, 2 hour- 149, 3 hour - 79. Other threatened labor, antepartum 05/23/201207/24 Supervision of other high-risk 05/13/2012 07/24/2012 Overview: ICD10 Diagnosis Term Hydraulic Plumber Utility High-risk 05/13/2012 07/24/2012 Prior labor, antepartum 05/13/2012 07/25/19 13 with poor reproductive history- prior PTB 05/13/19 13 07/24/2012 documented as of this encounter (statuses as of 12/01/2019) Immunizations Name Administration Dates Next Due TDAP [...] Signs Not on filedocumented in this encounter Plan of Treatment Date Type Specialty Care Team Description 02/24/2020 [facility] [address] [place] [address] [phone] Name Type Priority Associated Diagnoses Order S chedule URINE CULTURE LAB Routine UTI symptoms Ordered: 11/30 URINALYSIS LAB Routine UTI symptoms Ordered: 2019 Health Maintenance Due Date Last Done Comments [...] filedocumented in this encounter Visit Diagnoses Diagnosis UTI symptoms - Primary documented in this encounter Insurance Payer Benefit Plan Subscriber ID Effective Phone Address Typ e / Group Dates [facility] [id number] 2017-Alfredo [phone] [address] Medicaid WOMEN nt 00 [id number] [place] [address] documented as of this encounter Advance Directives Type Date Recorded Patient Director On Air Explanati on Advance Directives and Living Will Power of Office Support Clerk Name Relationship Healthcare Agent Communication Relationship Ray Mitesh Spouse Health Care Agent
--- OUTSIDE RECORDS SUMMARY | 2019-12-09 09:57 | XMS REPORT | Summary of Care ---
:1980 Author Organization [facility] Address [address] [place] [address] Care Team Providers Name Role Phone Emily Banks [facility] Primary Care Provider Reason for Visit Reason Comments Assessment Results Encounter Details Date Type Department Care Team Description 11/28/2019 Telephone [facility] Winter Banks, Assessment; Results [facility] [address] [place] [address] [facility] [place] [address] [place] [address] [phone] Allergies Active Allergy Reactions Severity Noted Date Comments Omeprazole Magnesium Hives 07/14/2016 documented as of this encounter (statuses as of 11/28/2019) Medications Medication Sig Dispensed Refills Start Date [...] as of this encounter (statuses as of 11/28/2019) Active Problems Problem Noted Date UTI (urinary tract infection) 04/21/2019 History of partial hysterectomy 11/19/2018 Overview: Reports still has ovaries History of depression 11/19/2018 Overview: Currently on zolft and latuda, managed b y [facility] History of anxiety 11/19/2018 Well woman exam 09/15/2015 Obesity (BMI 30-39.9) 11/11/2014 Overview: ICD10 Diagnosis Term Boilermaker Ship Utility Contraceptive management 09/16/2014 IBS (irritable bowel syndrome) 05/13/2012 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 documented as of this encounter (statuses as of 11/28/2019) Resolved Problems Problem Noted Date Resolved Date Dysuria 11/07/2017 11/19/2018 Urinary frequency 11/07/2017 11/19/2018 Urgency of urination 11/07/2017 11/19/2018 Dysmenorrhea 04/09/2015 11/19/2018 Bacterial vaginosis 04/09/2015 09/15/2015 Constipation 11/12/2014 01/07/2015 Overview: ICD10 Diagnosis Term Boilermaker Ship Utility BV (bacterial vaginosis) 11/11/2014 01/07/2015 Female genital symptoms 11/11/2014 11/11/2014 Overview: ICD10 Diagnosis Term Boilermaker Ship Utility Abdominal pain, other specified site 11/11/2014 Obesity complicating , childbirth, or puerperium, 0 09/16/2014 11/11/2014 antepartum Overview: ICD10 Diagnosis Term Boilermaker Ship Utility Encounter for routine gynecological examination 09/16/2014 11/11/2014 Overview: ICD10 Diagnosis Term Boilermaker Ship Utility Mood swings 09/16/2014 11/11/2014 Multiparity 07/25/2012 09/16/2014 Perineal laceration with delivery, first degree, delivered 0 07/24/2012 08/08/2012 Threatened premature labor, antepartum(644.03) 07/17/2012 07/24/2012 Glycosuria 05/30/2012 07/24/2012 Overview: Normal 3 hour GTT. Fasting- 70, 1 hour - 137, 2 hour- 149, 3 hour - 79. Other threatened labor, antepartum 05/23/201207/24 Supervision of other high-risk 05/13/2012 07/24/2012 Overview: ICD10 Diagnosis Term Boilermaker Ship Utility High-risk 05/13/2012 07/24/2012 Prior labor, antepartum 05/13/2012 07/25/19 13 with poor reproductive history- prior PTB 05/13/19 13 07/24/2012 documented as of this encounter (statuses as of 11/28/2019) Immunizations Name Administration Dates Next Due TDAP [...] Telephone Encounter - Jaqueline Wilson LVN - 11/28/2019 1:27 PM CDTAshona Kylah Sagastume is a 39 year old female Patient stated she is having urinary frequency x2 weeks. Stated she feels she can not empty bladder.Stated she also has burning with urination but that she started taking AZOs and they have been helping burning. Stated she is also having lower back and lower abd pain. Informed patient urine culture was contaminated and can repeat today. Appointment given for today at 3:15pm. Telephone Encounter - MARIKA Siegel - 11/28/2019 11:14 AM CDTPt is requesting call back, states symptoms of UTI are worse and would like to go over results. documented in this encounter Plan of Treatment Date Type Specialty Care Team Description 11/28/2019 Drill Sharpener [facility] Office Visit [facility]ell[facility] Negra Banks, CNP [address] [place] [address] [phone] Health Maintenance Due Date Last Done Comments [...] [facility] [id number] 2017-Alfredo [phone] Medicaid WOMEN nt [address] [place] [address] documented as of this encounter Advance Directives Type Date Recorded Patient Director Of Community Life Explanati on Advance Directives and Living Will Power of Hold Worker Name Relationship Healthcare Agent Communication Relationship Ray Sagastume Spouse Health Care Agent
--- OUTSIDE RECORDS SUMMARY | 2019-12-09 09:57 | XMS REPORT | Summary of Care ---
:1980 Author Organization [facility] Address [address] [place] [address] Care Team Providers Name Role Phone Emily Banks [facility] Primary Care Provider Reason for Visit Reason Comments YEAST INFECTION Encounter Details Date Type Department Care Team Description 12/03/2019 Telephone [facility]- Winter Banks, YEAST INFECTION [facility] [address] [facility] [address] [place] [address]55 [facility] A [phone] [place], [place] [address] [phone] Allergies Active Allergy Reactions Severity Noted Date [...] on zolft and latuda, managed b y 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 documented as of this encounter (statuses as of 12/03/2019) Resolved Problems Problem Noted Date Resolved Date Dysuria 11/07/2017 11/19/2018 Urinary frequency 11/07/2017 11/19/2018 Urgency of urination 11/07/2017 11/19/2018 Dysmenorrhea 04/09/2015 11/19/2018 Bacterial vaginosis 04/09/2015 09/15/2015 Constipation 11/12/2014 01/07/2015 Overview: ICD10 Diagnosis Term Insurance Adviser Utility BV (bacterial vaginosis) 11/11/2014 01/07/2015 Female genital symptoms 11/11/2014 11/11/2014 Overview: ICD10 Diagnosis Term Insurance Adviser Utility Abdominal pain, other specified site 11/11/2014 Obesity complicating , childbirth, or puerperium, 0 09/16/2014 11/11/2014 antepartum Overview: ICD10 Diagnosis Term Insurance Adviser Utility Encounter for routine gynecological examination 09/16/2014 11/11/2014 Overview: ICD10 Diagnosis Term Insurance Adviser Utility Mood swings 09/16/2014 11/11/2014 Multiparity 07/25/2012 09/16/2014 Perineal laceration with delivery, first degree, delivered 0 07/24/2012 08/08/2012 Threatened premature labor, antepartum(644.03) 07/17/2012 07/24/2012 Glycosuria 05/30/2012 07/24/2012 Overview: Normal 3 hour GTT. Fasting- 70, 1 hour - 137, 2 hour- 149, 3 hour - 79. Other threatened labor, antepartum 05/23/201207/24 Supervision of other high-risk 05/13/2012 07/24/2012 Overview: ICD10 Diagnosis Term Insurance Adviser Utility High-risk 05/13/2012 07/24/2012 Prior labor, antepartum [...] this encounter Miscellaneous Notes Telephone Encounter - Cora Gomes RN - 12/03/2019 2:23 PM CDTAmbpernell Kylah Sagastume is a 39 year old female Attempted to call patient, no answer. Left message on voicemail. elephone Encounter - Winter Banks WHCNP - 12/03/2019 11:47 AM CDT.Please notify the patient that yeast was identified on her pap. Meds have been sent to her pharmacyon file, please advise the patient to complete the meds as prescribed, and practice good perineal hygiene. MICHAEL Weiss 12/03/2019 11:47 AM documented in this encounter Plan of Treatment Date Type Specialty Care Team Description 02/24/2020 Office Visit [facility] Negra Banks WHCNP [address] [place], [place] [address] [phone] Health Maintenance Due Date Last Done Comments [...] Phone Address Typ e / Group Dates [facility] [id number] 2017-Alfredo [phone] [address] Medicaid WOMEN nt [address] [id number] [place] [address] documented as of this encounter Advance Directives Type Date Recorded Patient Gm Explanati on Advance Directives and Living Will Power of Television Audio Engineer Name Relationship Healthcare Agent Communication Relationship Ray Sagastume Spouse Health Care Agent
--- OUTSIDE RECORDS SUMMARY | 2019-12-09 09:58 | XMS REPORT ---
:1980 Author Organization [employer] Care Team Providers Name Role Phone De La Fuente, Na Provider Role Unavailable Allergies No Known Allergies Problems Problem Type Condition Code Onset Dates Condition Statu s Problem Upper respiratory infection, acute J06.9 Active Problem Panic attacks F41.0 Active Problem GERD without esophagitis K21.9 Act bruna Problem Allergic rhinitis J30.9 Active Problem Fatigue R53.83 Active Problem Bipolar affective, manic, unspec F31.10 Active Problem Atypical chest pain R07.89 Active Problem Irritable bowel K58.9 Active Problem Ovarian cyst N83.20 Active Problem Depression with anxiety F41.8 Acti ve Medications Medication Code Code Instructions Start End Status Dosage System Date Date Fluoxetine HCl ND 28163447878 10 MG Orally Active 1 capsule Once a day Famotidine ND 80628710565 40 MG Orally Nov 30, Active 1 t ablet Once a day 2019 at bedtime as needed Protonix ND 56981698302 40 MG Orally Active 1 tabl et Once a day Xanax ND 42310620446 0.25 MG Orally Active 1 tab let Twice a day Tamsulosin HCl NDC 32881006598 0.4 MG Orally Dec 03, Jan 02, Active 1 capsule Once a day 2019 2019 Cipro ND 85976961842 500 MG Orally Dec 03, Nov Active 1 tab let every 12 hrs 2019 Results No Known Results Summary Purpose [employer] Submission
--- OUTSIDE RECORDS SUMMARY | 2019-12-09 09:58 | XMS REPORT | Summary of Care ---
:1980 Author Organization [facility] Address [address] [place] [address] Care Team Providers Name Role Phone Emily Banks [facility] Primary Care Provider Reason for Visit Reason Comments YEAST INFECTION Encounter Details Date Type Department Care Team Description 12/03/2019 Telephone [facility]- Winter Banks, YEAST INFECTION [facility] 1108 [facility] 1108 [place] [address] [facility] A [phone] [place], [place] [address] [phone] Allergies Active Allergy Reactions Severity Noted Date [...] on zolft and latuda, managed b y [facility] History of anxiety 11/19/2018 Well woman exam 09/15/2015 Obesity (BMI 30-39.9) 11/11/2014 Overview: ICD10 Diagnosis Term Music Instructor Utility Contraceptive management 09/16/2014 IBS (irritable bowel syndrome) 05/13/2012 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 documented as of this encounter (statuses as of 12/03/2019) Resolved Problems Problem Noted Date Resolved Date Dysuria 11/07/2017 11/19/2018 Urinary frequency 11/07/2017 11/19/2018 Urgency of urination 11/07/2017 11/19/2018 Dysmenorrhea 04/09/2015 11/19/2018 Bacterial vaginosis 04/09/2015 09/15/2015 Constipation 11/12/2014 01/07/2015 Overview: ICD10 Diagnosis Term Music Instructor Utility BV (bacterial vaginosis) 11/11/2014 01/07/2015 Female genital symptoms 11/11/2014 11/11/2014 Overview: ICD10 Diagnosis Term Music Instructor Utility Abdominal pain, other specified site 11/11/2014 Obesity complicating , childbirth, or puerperium, 0 09/16/2014 11/11/2014 antepartum Overview: ICD10 Diagnosis Term Music Instructor Utility Encounter for routine gynecological examination 09/16/2014 11/11/2014 Overview: ICD10 Diagnosis Term Music Instructor Utility Mood swings 09/16/2014 11/11/2014 Multiparity 07/25/2012 09/16/2014 Perineal laceration with delivery, first degree, delivered 0 07/24/2012 08/08/2012 Threatened premature labor, antepartum(644.03) 07/17/2012 07/24/2012 Glycosuria 05/30/2012 07/24/2012 Overview: Normal 3 hour GTT. Fasting- 70, 1 hour - 137, 2 hour- 149, 3 hour - 79. Other threatened labor, antepartum 05/23/201207/24 Supervision of other high-risk 05/13/2012 07/24/2012 Overview: ICD10 Diagnosis Term Music Instructor Utility High-risk 05/13/2012 07/24/2012 Prior labor, antepartum [...] Encounter - Winter Banks WHCNP - 12/03/2019 4:30 PM CDT Please see results review, urine culture results are WNL. MICHAEL Weiss 12/03/2019 4:30 PM Telephone Encounter - Gallo Salazar RN - 12/03/2019 3:25 PM CDTNotified patient of results- +yeast. Medication sent to pharmacy. Patient verbalized understanding. GALLO SALAZAR RN 12/03/2019 3:26 PM Telephone Encounter - Cora Gomes RN - 12/03/2019 2:23 PM CDTAmber Kylah Sagastume is a 39 year [...] OB Satellites Negra Banks WHCNP [address] [place], [place] [address] [phone] Health Maintenance Due Date Last Done Comments [...] Phone Address Typ e / Group Dates [facility]PLACED [facility] [id number] 2017-Alfredo [phone] [address] Medicaid WOMEN nt [address] [place] [address] documented as of this encounter Advance Directives Type Date Recorded Patient Ribbon Lap Machine Tender Explanati on Advance Directives and Living Will Power of J2Ee Java Developer Name Relationship Healthcare Agent Communication Relationship Ray Sagastume Spouse Health Care Agent
--- OUTSIDE RECORDS SUMMARY | 2019-12-09 09:58 | XMS REPORT | Summary of Care ---
:1980 Author Organization [facility] Address [address] [place] [address] Care Team Providers Name Role Phone Emily Banks [facility] Primary Care Provider Reason for Visit Reason Comments YEAST INFECTION Encounter Details Date Type Department Care Team Description 12/03/2019 Telephone [facility]- Winter Banks, YEAST INFECTION [facility] 1108 [facility] 1108 [place] [address] [facility] A [phone] [place], [place] [address] [phone] Allergies Active Allergy Reactions Severity Noted Date [...] on zolft and latuda, managed b y [facility] History of anxiety 11/19/2018 Well woman exam 09/15/2015 Obesity (BMI 30-39.9) 11/11/2014 Overview: ICD10 Diagnosis Term 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 Contraceptive management 09/16/2014 IBS (irritable bowel syndrome) 05/13/2012 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 documented as of this encounter (statuses as of 12/03/2019) Resolved Problems Problem Noted Date Resolved Date Dysuria 11/07/2017 11/19/2018 Urinary frequency 11/07/2017 11/19/2018 Urgency of urination 11/07/2017 11/19/2018 Dysmenorrhea 04/09/2015 11/19/2018 Bacterial vaginosis 04/09/2015 09/15/2015 Constipation 11/12/2014 01/07/2015 Overview: ICD10 Diagnosis Term 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 BV (bacterial vaginosis) 11/11/2014 01/07/2015 Female genital symptoms 11/11/2014 11/11/2014 Overview: ICD10 Diagnosis Term 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 Abdominal pain, other specified site 11/11/2014 Obesity complicating , childbirth, or puerperium, 0 09/16/2014 11/11/2014 antepartum Overview: ICD10 Diagnosis Term 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 Encounter for routine gynecological examination 09/16/2014 11/11/2014 Overview: ICD10 Diagnosis Term 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 Mood swings 09/16/2014 11/11/2014 Multiparity 07/25/2012 09/16/2014 Perineal laceration with delivery, first degree, delivered 0 07/24/2012 08/08/2012 Threatened premature labor, antepartum(644.03) 07/17/2012 07/24/2012 Glycosuria 05/30/2012 07/24/2012 Overview: Normal 3 hour GTT. Fasting- 70, 1 hour - 137, 2 hour- 149, 3 hour - 79. Other threatened labor, antepartum 05/23/201207/24 Supervision of other high-risk 05/13/2012 07/24/2012 Overview: ICD10 Diagnosis Term 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 High-risk 05/13/2012 07/24/2012 Prior labor, antepartum [...] OB Satellites Negra Banks WHCNP [address] [place], [place] [address] [phone] Health Maintenance Due Date Last Done Comments [...] Typ e / Group Dates [facility] [id number] 2017-Alfredo [phone] [address] Medicaid WOMEN nt [address] [id number] [place] [address] documented as of this encounter Advance Directives Type Date Recorded 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
--- OUTSIDE RECORDS SUMMARY | 2019-12-09 09:58 | XMS REPORT | Summary of Care ---
:1980 Author Organization [facility] Address [address] [place] [address] Care Team Providers Name Role Phone Emily Banks [facility] Primary Care Provider Reason for Visit Reason Comments YEAST INFECTION Encounter Details Date Type Department Care Team Description 12/03/2019 Telephone [facility]- Winter Banks, YEAST INFECTION [facility] 1108 [facility] 1108 [place] [address]55 [facility] A [phone] [place], [place] [address] [phone] Allergies Active Allergy Reactions Severity Noted Date [...] on zolft and latuda, managed b y [facility] History of anxiety 11/19/2018 Well woman exam 09/15/2015 Obesity (BMI 30-39.9) 11/11/2014 Overview: ICD10 Diagnosis Term 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 Drill 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 Contraceptive management 09/16/2014 IBS (irritable bowel syndrome) 05/13/2012 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 documented as of this encounter (statuses as of 12/03/2019) Resolved Problems Problem Noted Date Resolved Date Dysuria 11/07/2017 11/19/2018 Urinary frequency 11/07/2017 11/19/2018 Urgency of urination 11/07/2017 11/19/2018 Dysmenorrhea 04/09/2015 11/19/2018 Bacterial vaginosis 04/09/2015 09/15/2015 Constipation 11/12/2014 01/07/2015 Overview: ICD10 Diagnosis Term Radial Drill 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 BV (bacterial vaginosis) 11/11/2014 01/07/2015 Female genital symptoms 11/11/2014 11/11/2014 Overview: ICD10 Diagnosis Term Radial Drill 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 Abdominal pain, other specified site 11/11/2014 Obesity complicating , childbirth, or puerperium, 0 09/16/2014 11/11/2014 antepartum Overview: ICD10 Diagnosis Term Radial Drill 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 Encounter for routine gynecological examination 09/16/2014 11/11/2014 Overview: ICD10 Diagnosis Term Radial Drill 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 Mood swings 09/16/2014 11/11/2014 Multiparity 07/25/2012 09/16/2014 Perineal laceration with delivery, first degree, delivered 0 07/24/2012 08/08/2012 Threatened premature labor, antepartum(644.03) 07/17/2012 07/24/2012 Glycosuria 05/30/2012 07/24/2012 Overview: Normal 3 hour GTT. Fasting- 70, 1 hour - 137, 2 hour- 149, 3 hour - 79. Other threatened labor, antepartum 05/23/201207/24 Supervision of other high-risk 05/13/2012 07/24/2012 Overview: ICD10 Diagnosis Term Radial Drill 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 High-risk 05/13/2012 07/24/2012 Prior labor, antepartum [...] this encounter Miscellaneous Notes Telephone Encounter - Gallo Salazar RN - 12/03/2019 3:25 PM CDTNotified patient of results- +yeast. Medication sent to pharmacy. Patient verbalized understanding. 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
--- OUTSIDE RECORDS SUMMARY | 2019-12-09 09:58 | XMS REPORT | Summary of Care ---
:1980 Author Organization [facility] Address [address] [place] [address] Care Team Providers Name Role Phone Emily Banks [facility] Primary Care Provider Reason for Visit Reason Comments YEAST INFECTION Encounter Details Date Type Department Care Team Description 12/03/2019 Telephone [facility]- Winter Banks, YEAST INFECTION [facility] 1108 [facility] 1108 [place] [address]55 [facility] A [phone] [place], [place] [address] [phone] Allergies Active Allergy Reactions Severity Noted Date [...] zolft and latuda, managed b y [facility] History of anxiety 11/19/2018 Well woman exam 09/15/2015 Obesity (BMI 30-39.9) 11/11/2014 Overview: ICD10 Diagnosis Term Subassembly Supervisor 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 Contraceptive management 09/16/2014 IBS (irritable bowel syndrome) 05/13/2012 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 documented as of this encounter (statuses as of 12/03/2019) Resolved Problems Problem Noted Date Resolved Date Dysuria 11/07/2017 11/19/2018 Urinary frequency 11/07/2017 11/19/2018 Urgency of urination 11/07/2017 11/19/2018 Dysmenorrhea 04/09/2015 11/19/2018 Bacterial vaginosis 04/09/2015 09/15/2015 Constipation 11/12/2014 01/07/2015 Overview: ICD10 Diagnosis Term Subassembly Supervisor Utility BV (bacterial vaginosis) 11/11/2014 01/07/2015 Female genital symptoms 11/11/2014 11/11/2014 Overview: ICD10 Diagnosis Term Subassembly Supervisor Utility Abdominal pain, other specified site 11/11/2014 Obesity complicating , childbirth, or puerperium, 0 09/16/2014 11/11/2014 antepartum Overview: ICD10 Diagnosis Term Subassembly Supervisor Utility Encounter for routine gynecological examination 09/16/2014 11/11/2014 Overview: ICD10 Diagnosis Term Subassembly Supervisor Utility Mood swings 09/16/2014 11/11/2014 Multiparity 07/25/2012 09/16/2014 Perineal laceration with delivery, first degree, delivered 0 07/24/2012 08/08/2012 Threatened premature labor, antepartum(644.03) 07/17/2012 07/24/2012 Glycosuria 05/30/2012 07/24/2012 Overview: Normal 3 hour GTT. Fasting- 70, 1 hour - 137, 2 hour- 149, 3 hour - 79. Other threatened labor, antepartum 05/23/201207/24 Supervision of other high-risk 05/13/2012 07/24/2012 Overview: ICD10 Diagnosis Term Subassembly Supervisor Utility High-risk 05/13/2012 07/24/2012 Prior labor, antepartum [...] Encounter - Jaqueline Wilson LVN - 12/03/2019 4:36 PM CDTAmber Kylah Sagastume is a 39 year old female Patient informed of results, verbalized understanding. 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
[2019-12-09 10:27] LABS: Absolute Lymphocytes (CBC) 1.7 K/uL (0.7-4.9); Basophils % 0.9 % (0-1.3); Hematocrit 42.3 % (36.0-45.0); Lymphocytes % 29.9 % (15.3-44.8); MPV 8.5 fL (7.6-11.3); RBC Red Blood Cell Count 4.58 M/uL (3.86-4.86)
[2019-12-09] MEDS ORDERED: MORPHINE 4 MG/ML SYR ONE (10:29)
[2019-12-09] MEDS ORDERED: ONDANSETRON 4 MG/2 ML VIAL ONE (10:29)
[2019-12-09] MEDS ORDERED: NA CHLORIDE 0.9% 1,000 ML ONE (10:29)
--- NOTE | 2019-12-09 11:05 | RAD REPORT ---
EXAM DESCRIPTION: CT - Abdomen Pelvis W Contrast - 12/09/2019 10:49 am CLINICAL HISTORY: Abd pain;Flank pain COMPARISON: Abdomen Pelvis W Contrast dated 11/18/2017 TECHNIQUE: Biphasic, helical CT imaging of the abdomen and pelvis was performed following 100 ml non -ionic IV contrast. No oral contrast. All CT scans are performed using dose optimization technique as appropriate and may include automated exposure control or mA/KV adjustment according to patient size. FINDINGS: No suspicious findings in the lung bases. The liver, spleen, and pancreas show no suspicious findings. Gallbladder and biliary tree are also wi thout suspicious finding. Liver is borderline fatty infiltrated. Symmetric renal function is seen with no hydronephrosis or suspicious renal mass. No pyelonephritis o r acute parenchymal process. No bladder abnormalities. No adrenal abnormalities. Uterus is absent. Ri ght ovary contains a benign 3 centimeter cyst. No left ovarian or left adnexal abnormality. Minimal s ize nearly fully collapsed left ovarian cyst. No dilated bowel loops or bowel wall thickening. Patient has minimal diverticulosis but no diverticul itis. No active colon process. No free air, free fluid or inflammatory stranding. Patient has a very small incidental fat only umbilical hernia. No mass or bulky lymphadenopathy. No suspicious bony findings. IMPRESSION: CT abdomen and pelvis imaging shows no acute or emergent finding. As detailed above, no suspicious or emergent finding seen. No abnormality to explain left flank pain and hematuria.
[2019-12-09 11:25] LABS: BUN Blood Urea Nitrogen 4 mg/dL (7-18); Bicarbonate 24 mmol/L (21-32); Glucose Level 85 mg/dL (74-106); Potassium 3.2 mmol/L (3.5-5.1); Sodium Level 142 mmol/L (136-145)
[2019-12-09 11:40] LABS: Urine Bacteria <20 /HPF (<20); Urine Culture Reflex Order NOT NEEDED; Urine RBC NONE SEEN /HPF (NONE SEEN)
[2019-12-09 11:43] LABS: Urine Blood NEGATIVE (NEG); Urine Glucose NEGATIVE (NEG); Urine Protein NEGATIVE (NEG); Urine Specific Gravity <1.005 (1.005-1.030); Urine pH 5.5 (5.0-7.0)
--- NOTE | 2019-12-09 11:52 | ER ---
Nurse's Notes [facility] Name: Gali Sagastume Age: 39 yrs Sex: Female : 1980 Arrival Date: 12/09/2019 Time: 09:55 Bed 14 Private MD: Jodie De La Fuente Diagnosis: Flank Pain Presentation: 12/08 10:04 Chief complaint: Left flank pain, difficulty urinating, and blood in urine x 3 weeks. hb On Cipro and Flomax Day 6 for UTI. Coronavirus screen: At this time, the client does not indicate any symptoms associated with coronavirus-19. Ebola Screen: No symptoms or risks identified at this time. Initial Sepsis Screen: Does the patient meet any 2 criteria? No. Patient's initial sepsis screen is negative. Does the patient have a suspected source of infection? No. Patient's initial sepsis screen is negative. Risk Assessment: Do you want to hurt yourself or someone else? Patient reports no desire to harm self or others. Onset of symptoms was November 2019. 10:04 Method Of Arrival: Ambulatory hb 10:04 Acuity: LAINEY 3 hb MORPHOLOGIST: 12:15 LMP N/A - control method ll1 Historical: - Allergies: 10:06 Prilosec (Hives); hb - PMHx: 10:06 GERD; hiatal hernia; hb - PSHx: 10:06 Hysterectomy; hb - Immunization history:: Adult Immunizations up to date. - Social history:: Smoking status: Patient denies any tobacco usage or history of. Screenin:52 Abuse screen: Denies threats or abuse. Nutritional screening: No deficits noted. ll1 Tuberculosis screening: No symptoms or risk factors identified. Fall Risk IV access (20 points). Gait- Weak (10 pts.). Total May Fall Scale indicates Low Risk Score (25-44 pts). Fall prevention measures have been instituted. Side Rails Up X 2 Frequent Obs/Assesments occuring As available Patient and Family Educated on Fall Prevention Program and strategies. Assessment: 10:30 General: Appears uncomfortable, Behavior is calm, cooperative. Pain: Complains of pain ll1 in left flank Quality of pain is described as aching, Pain began 1 week ago. Neuro: No deficits noted. Cardiovascular: No deficits noted. Respiratory: No deficits noted. GI: Abdomen is flat, Bowel sounds present X 4 quads. Abd is soft Abd is non tender X 4 quads Reports upper abdominal pain, nausea. : No deficits noted. 11:30 Reassessment: Patient and/or family updated on plan of care and expected duration. Pain ll1 level reassessed. Patient is alert, oriented x 3, equal unlabored respirations, skin warm/dry/pink. Vital Signs: 10:04 BP 123 / 84; Pulse 88; Resp 16; Temp 98.2; Pulse Ox 100% ; Weight 90.26 kg; Height 5 hb ft. 4 in. (162.56 cm); Pain 8/10; 12:15 BP 120 / 83; Pulse 68; Resp 16; Pulse Ox 100% ; ll1 10:04 Body Mass Index 34.16 (90.26 kg, 162.56 cm) hb ED Course: 09:55 Patient arrived in ED. as 09:56 Jodie De La Fuente MD is Private Physician. as 10:04 [facility] Bledsoe [facility]C [facility] kb 10:04 Sonny Godoy MD is Attending Physician. kb 10:05 Triage completed. hb 10:06 Arm band placed on. hb 10:14 Rita Ceballos, NICOLA is Primary Nurse. ll1 10:20 Initial lab(s) drawn, by me, sent to lab. Missed attempt(s): 20 gauge in right mt antecubital area. 10:50 CT Abd/Pelvis - IV Contrast Only In Process Unspecified. EDMS 10:53 Patient has correct armband on for positive identification. Bed in low position. Call ll1 light in reach. Side rails up X 1. Pulse ox on. NIBP on. 11:50 Jodie De La Fuente MD is Referral Physician. kb 12:15 No provider procedures requiring assistance completed. IV discontinued, intact, ll1 bleeding controlled, No redness/swelling at site. Pressure dressing applied. Administered Medications: 10:33 Drug: NS 0.9% 1000 ml Route: IV; Rate: 1000 ml; Site: left antecubital; ll1 12:17 Follow up: Response: No adverse reaction; RASS: Alert and Calm (0); IV Status: ll1 Completed infusion; IV Intake: 1000ml 10:33 Drug: morphine 4 mg Route: IVP; Site: left antecubital; ll1 12:15 Follow up: Response: No adverse reaction; Pain is decreased; RASS: Alert and Calm (0) ll1 10:33 Drug: Zofran (Ondansetron) 4 mg Route: IVP; Site: left antecubital; ll1 12:15 Follow up: Response: No adverse reaction; RASS: Alert and Calm (0) ll1 11:54 Drug: Potassium Chloride 40 mEq Route: PO; ll1 18:33 Follow up: Response: No adverse reaction; RASS: Alert and Calm (0) ll1 Intake: 12:17 IV: 1000ml; Total: 1000ml. ll1 Outcome: 11:51 Discharge ordered by . kb 12:17 Patient left the ED. ll1 12:17 Discharged to home ambulatory. ll1 12:17 Condition: stable 12:17 Discharge instructions given to patient, Instructed on discharge instructions, follow up and referral plans. medication usage, Demonstrated understanding of instructions, follow-up care, medications, Prescriptions given X 2. Signatures: Dispatcher [employer] Tyra Leonard, WATER RESOURCE PROJECT MANAGER-C JANA-Mala Henson Heather, RN RN Scarlett Meraz mt, Lynsay, RN RN ll1
--- NOTE | 2019-12-09 11:52 | EDPHYS ---
Physician Documentation [facility] Name: Gali Sagastume Age: 39 yrs Sex: Female : 1980 Arrival Date: 12/09/2019 Time: 09:55 Bed 14 Private MD: Jodie De La Fuente ED Physician Sonny Godoy HPI: 12/08 10:21 This 39 yrs old Female presents to ER via Ambulatory with complaints of kb Possible Kidney Stone, Back Pain. 10:21 The patient complains of pain in the left flank. The pain radiates to the left lower kb quadrant and left upper quadrant. Onset: The symptoms/episode began/occurred 6 day(s) ago. Modifying factors: The symptoms are alleviated by nothing. the symptoms are aggravated by movement, palpation/percussion. Associated signs and symptoms: Pertinent positives: dysuria, hematuria. Severity of pain: At its worst the pain was moderate in the emergency department the pain is unchanged. The patient has not experienced similar symptoms in the past. The patient has not recently seen a physician. Pt reports she was diagnosed with a UTI 2 weeks ago and put on Cipro. States she has had dysuria and small amounts of output for 2 weeks. Reports left flank pain that started 6 days ago with radiation to left abd. . 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 - Social history:: Smoking status: Patient denies any tobacco usage or history of. ROS: 10:18 Constitutional: Negative for fever, chills, and weight loss, Neck: Negative for injury, kb pain, and swelling, Cardiovascular: Negative for chest pain, palpitations, and edema, Respiratory: Negative for shortness of breath, cough, wheezing, and pleuritic chest pain, MS/Extremity: Negative for injury and deformity, Skin: Negative for injury, rash, and discoloration, Neuro: Negative for headache, weakness, numbness, tingling, and seizure. 10:18 Abdomen/GI: Positive for abdominal pain. 10:18 : Positive for urinary symptoms, flank pain, small amounts, hematuria, difficulty urinating. Exam: 10:18 Constitutional: This is a well developed, well nourished patient who is awake, alert, kb and in no acute distress. Head/Face: Normocephalic, atraumatic. Chest/axilla: Normal chest wall appearance and motion. Nontender with no deformity. No lesions are appreciated. Cardiovascular: Regular rate and rhythm with a normal S1 and S2. No gallops, murmurs, or rubs. Normal PMI, no JVD. No pulse deficits. Respiratory: Lungs have equal breath sounds bilaterally, clear to auscultation and percussion. No rales, rhonchi or wheezes noted. No increased work of breathing, no retractions or nasal flaring. Skin: Warm, dry with normal turgor. Normal color with no rashes, no lesions, and no evidence of cellulitis. MS/ Extremity: Pulses equal, no cyanosis. Neurovascular intact. Full, normal range of motion. Neuro: Awake and alert, GCS 15, oriented to person, place, time, and situation. Cranial nerves II-XII grossly intact. Motor strength 5/5 in all extremities. Sensory grossly intact. Cerebellar exam normal. Normal gait. 10:18 Abdomen/GI: Inspection: abdomen appears normal, Bowel sounds: normal, in all quadrants, Palpation: soft, in all quadrants, moderate abdominal tenderness, in the left upper quadrant and left lower quadrant. 10:18 Back: CVA tenderness, that is moderate, is noted on the left. 10:19 Back: CVA tenderness, that is mild, is noted on the right. kb Vital Signs: 10:04 BP 123 / 84; Pulse 88; Resp 16; Temp 98.2; Pulse Ox 100% ; Weight 90.26 kg; Height 5 hb ft. 4 in. (162.56 cm); Pain 8/10; 12:15 BP 120 / 83; Pulse 68; Resp 16; Pulse Ox 100% ; ll1 10:04 Body Mass Index 34.16 (90.26 kg, 162.56 cm) hb MDM: 10:06 Patient medically screened. kb 10:17 Data reviewed: vital signs, nurses notes. Data interpreted: Pulse oximetry: on room air kb is 100 %. Interpretation: normal. 11:50 Counseling: I had a detailed discussion with the patient and/or guardian regarding: the kb historical points, exam findings, and any diagnostic results supporting the discharge/admit diagnosis, lab results, radiology results, the need for outpatient follow up, a family practitioner, to return to the emergency department if symptoms worsen or persist or if there are any questions or concerns that arise at home. 12/08 10:07 Order name: Urine Microscopic Only; Complete Time: 11:43 kb 12/08 10:07 Order name: Basic Metabolic Panel; Complete Time: 11:30 kb 12/08 10:07 Order name: CBC with Diff; Complete Time: 10:31 kb 12/08 11:08 Order name: CREATININE WHOLE BLOOD; Complete Time: 11:09 EDMS 12/08 11:08 Order name: Urine Dipstick--Ancillary (enter results); Complete Time: 11:44 bd 12/08 10:07 Order name: Urine Dipstick-Ancillary (obtain specimen); Complete Time: 18:32 kb 12/08 10:07 Order name: IV Saline Lock; Complete Time: 10:20 kb 12/08 10:07 Order name: Labs collected and sent; Complete Time: 10:20 kb 12/08 10:13 Order name: CT Abd/Pelvis - IV Contrast Only; Complete Time: 11:07 kb 12/08 10:36 Order name: Labs - recollect needed: recollect c7; Complete Time: 11:09 bd Administered Medications: 10:33 Drug: NS 0.9% 1000 ml Route: IV; Rate: 1000 ml; Site: left antecubital; ll1 12:17 Follow up: Response: No adverse reaction; RASS: Alert and Calm (0); IV Status: ll1 Completed infusion; IV Intake: 1000ml 10:33 Drug: morphine 4 mg Route: IVP; Site: left antecubital; ll1 12:15 Follow up: Response: No adverse reaction; Pain is decreased; RASS: Alert and Calm (0) ll1 10:33 Drug: Zofran (Ondansetron) 4 mg Route: IVP; Site: left antecubital; ll1 12:15 Follow up: Response: No adverse reaction; RASS: Alert and Calm (0) ll1 11:54 Drug: Potassium Chloride 40 mEq Route: PO; ll1 18:33 Follow up: Response: No adverse reaction; RASS: Alert and Calm (0) ll1 Disposition: 12:26 Co-signature as Attending Physician, Sonny Godoy MD. rn Disposition: 12/09/19 11:51 Discharged to Home. Impression: Flank Pain. - Condition is Stable. - Discharge Instructions: Flank Pain, [id number]. - Prescriptions for Cyclobenzaprine 10 mg Oral Tablet - take 1 tablet by ORAL route every 8 hours As needed; 21 tablet. Diclofenac Sodium 75 mg Oral Tablet, Delayed Release (E.C.) - take 1 tablet by ORAL route 2 times per day As needed; 30 tablet. - Medication Reconciliation Form, Thank You Letter, Antibiotic Education, Prescription Opioid Use, Work release form form. - Follow up: Emergency Department; When: As needed; Reason: Worsening of condition. Follow up: Jodie De La Fuente MD; When: 2 - 3 days; Reason: Recheck today's complaints, Continuance of care, Re-evaluation by your physician. Signatures: Dispatcher [employer] [facility] Tyra Bledsoe, CENTRIFUGAL SCREEN TENDER-C CENTRIFUGAL SCREEN TENDER-Ckb Marina Lizarraga Roman, MD MD rn Baxter, Heather, RN RN hb Lewis, Lynsay, RN RN ll1 Corrections: (The following items were deleted from the chart) 10:22 10:08 [place] Protocol+CT.RAD.BRZ ordered. [facility] 12:17 11:51 12/09/2019 11:51 Discharged to Home. Impression: Flank Pain. Condition is Stable. ll1 Forms are Medication Reconciliation Form, Thank You Letter, Antibiotic Education, Prescription Opioid Use. Follow up: Emergency Department; When: As needed; Reason: Worsening of condition. Follow up: Jodie De La Fuente; When: 2 - 3 days; Reason: Recheck today's complaints, Continuance of care, Re-evaluation by your physician. kb
[2019-12-09] MEDS ORDERED: POTASSIUM CL SA 10 MEQ TAB PO ONE (12:02)
[2019-12-09 12:24] VITALS: BP 123/84; TEMP 98.2; O2SAT 100
== END 2019-12-09 12:17 | disposition home or self-care (01) ==
LOC: ER 09:53
DX: R10.9 Unspecified abdominal pain (principal); K21.9 Gastro-esophageal reflux disease without esophagitis
CPT/HCPCS: 36415; 74177; 80048; 81003; 81015; 82565; 85025; 96361; 96374; 96375; 99284; J2405; J7030; Q9967

== ENCOUNTER 2024-05-08 06:30 | Day surgery (SDC) | payer OTHER ==
[2024-05-05 12:06] LABS: Absolute Eosinophils 0.1 K/uL (0-0.5); Absolute Lymphocytes (CBC) 2.2 K/uL (0.7-4.9); Absolute Monocytes 0.5 K/uL (0.1-1.3); Absolute Neutrophil 2.7 K/uL (1.8-8.0); Basophils % 0.6 % (0-1.3); Eosinophils % 2.3 % (0-4.4); Hematocrit 44.3 % (36.0-45.0); MCH 31.4 pg (27.0-35.0); MCHC 33.7 g/dL (32.0-36.0); MCV 93.2 fL (80-100); MPV 8.7 fL (7.6-11.3); Monocytes % 8.3 % (3.3-12.3); Neutrophils % 48.8 % (41.7-73.7); Nucleated Red Blood Cells % 0.1 % (0-0); Platelets 249 thou/uL (152-406); RBC Red Blood Cell Count 4.76 M/uL (3.86-4.86); Red Cell Distribution Width 13.4 % (12.1-15.2)
[2024-05-05 12:25] LABS: Specific Gravity < 1.005 (1.005-1.030); Sqamous Epithelial <5 /HPF (None Seen); Urine Bacteria <20 /HPF (<20); Urine Bilirubin NEGATIVE (Negative); Urine Blood Negative (Negative); Urine Clarity Turbid (Clear); Urine Color Colorless (Yellow); Urine Culture Reflex Order NOT NEEDED; Urine Glucose NEGATIVE (Negative); Urine Ketones NEGATIVE (Negative); Urine Microscopic Reflex YN ORDER UMIC; Urine Nitrite NEGATIVE (Negative); Urine Protein NEGATIVE (Negative); Urine RBC <5 /HPF (None Seen); Urine Urobilinogen Normal (Normal); Urine WBC <5 /HPF (<5); Urine pH 5.5 (5.0-7.0)
[2024-05-08] MEDS ORDERED: propofoL 200 MG/20 ML VIAL IV ONE (07:12)
[2024-05-08] MEDS ORDERED: ROCURONIUM 50 MG/5 ML VIAL IV ONE (07:12)
[2024-05-08] MEDS ORDERED: LIDOCAINE 2% MPF 5 ML VIAL ONE (07:12)
[2024-05-08] MEDS ORDERED: MIDAZOLAM HCL 2 MG/2 ML INJ ONE (07:12)
[2024-05-08] MEDS ORDERED: ONDANSETRON 4 MG/2 ML VIAL ONE (07:12)
[2024-05-08] MEDS ORDERED: FENTANYL CITR 100 MCG/2 ML ONE ×2 (07:12→08:24)
[2024-05-08] MEDS: Ringers Lactate 1,000 ML IV ONE (07:15)
[2024-05-08] MEDS ORDERED: SUCCINYLCHOLINE 20 MG/ML (10 ML) IV ONE (07:23)
[2024-05-08] MEDS: SCOPOLAMINE HYDROBROMIDE PATCH TD ONE (07:23)
[2024-05-08] MEDS ORDERED: SUGAMMADEX SODIUM 200 MG/2 ML VIAL IV ONE (07:23)
[2024-05-08] MEDS ORDERED: FAMOTIDINE 20 MG/2 ML VIAL IV ONE (07:24)
[2024-05-08] MEDS: BUPIVACAINE 0.25% PF 30 ML VIAL ONE (08:17)
[2024-05-08] MEDS ORDERED: KETOROLAC 30 MG/ML INJ ONE (08:47)
[2024-05-08] MEDS ORDERED: NEOSTIGMINE 1 MG/ML -10 ML VIAL ONE (08:56)
[2024-05-08] MEDS ORDERED: GLYCOPYRROLATE 0.2 MG/ML SYR ONE (08:57)
[2024-05-08] MEDS ORDERED: Mastisol Adhesive Liq ONE (09:01)
[2024-05-08] MEDS: HYDROMORPHONE HCL 1 MG/ML INJ ONE (09:34)
[2024-05-08] MEDS: MEPERIDINE HCL 25 MG/ML SYR ONE (09:41)
--- NOTE | 2024-05-08 10:36 | OP ---
Date of Procedure: 05/08/2024 Surgeon: Morenita Strauss MD [employer] Installer: Alyssia Caldwell. Preoperative Diagnoses: Right lower quadrant pain, pelvic pain, history of endometriosis. Postoperative Diagnoses: Bilateral lateral wall endometriosis, posterior vaginal wall cul-de-sac end ometriosis, suspected bilateral ovarian cysts. Procedures Performed: Diagnostic laparoscopy, bilateral oophorectomy, and endometriosis excision. Anesthesia: General endotracheal. Estimated Blood Loss: 25. Specimens: Bilateral ovaries and endometriosis of the right lateral wall and posterior vaginal wall. The left lateral endometriosis was fulgurated. Complications: No complications. Drains: No drains. Patient's Condition: Stable. Findings: Left lateral wall with very minimal endometriosis that was not very clear as the lesion, b ut this was fulgurated. Then, below the cuff on the posterior vaginal wall and peritoneum, there was a subperitoneal implant attached significantly to the vaginal wall that had to be excised and right lateral wall endometriosis starting all the way from the lower portion of the right lateral wall just below the remnant of the uterine artery all the way up to the mesovarium superior and lateral to the ureter. Both ovaries had cysts, one hemorrhagic, other appeared to be endometriotic. Both of them were excised. The rest of the peritoneal cavity was systematically examined, and there was no eviden ce of any other endometriosis. Bowel had no endometriosis either. Upper abdominal surface was negat bruna. The patient's condition stable. Indications: The patient is a 44-year-old status post hysterectomy and bilateral salpingectomy and e ndometriosis excision, presented with recurrent pelvic pain, right lower quadrant; evaluated with ult rasound; not a significant endometrioma or mass noted, but she was followed. She had GI workup and albert deras came back again to me for her pain, and we discussed about possible endometriosis, and therefore, went ahead with the decision of using a GnRH antagonist or bilateral oophorectomy and endometriosis excision. Given her perimenopausal status, using the GnRH antagonist would lower her estrogen levels as well and increase her perimenopausal symptoms and it would be very difficult to treat her menopau oliver symptoms with pain. The patient wanted to proceed with surgical removal and hormonal management postoperatively status post surgical menopause. She was consented in the office, then brought back a nd re-consented in the preoperative area with her . All questions and answers were done to th e satisfaction, and the patient was taken back to the operating room. Description Of Procedure: Placed in supine fashion on the operating table. General anesthesia was g iven. Arms tucked by the side. Abdomen prepped with ChloraPrep; vulva, vagina, and perineum with Be tadine and draped in a sterile fashion. The patient was grounded. SCDs were started. Time-out was done and procedure started. Vaginal sponge was placed on a sponge stick for retraction and Stoddard to drain the bladder and attached to a drainage bag. This area was draped. One cm infraumbilical incision was made with the scalpel using the open laparoscopy technique. Fasci a was incised, tagged with 0 Vicryl sutures. Peritoneum entered sharply. After Augustina was introduce d, inadequate insufflation was attained. Five suprapubic and left lower quadrant ports were placed u nder direct vision after injecting skin and fascia with Marcaine 0.25%. Then, the patient was placed in significant Trendelenburg. The pelvic cavity was examined. Findings as discussed above. Endometriosis excision: The right lateral wall was opened up below the remnant of the round ligament and peritoneum was opened up clearly it from the lateral wall structures all the way down to the level of the uterine vessels. The ureter was laterally and preserved. This was si gnificantly inferior as well to the implants. Then, the peritoneum was excised all the way from the round ligament to the uterosacral ligament and the entire endometriosis implants and scar were remove d. Then, in the mesovarium superiorly, there was suspected endometriosis, so cleanly the peritoneum was excised to isolate the IP ligament. Then, the IP was taken down with the help of the LigaSure, a nd this specimen was placed in the cul-de-sac. Posterior cul-de-sac endometriosis was then excised using the LigaSure as well as the peritoneum was opened up in the healthy area and dissection was carried on the posterior vaginal wall circumscribing the area of the lesion and then the lesion was excised by sharp dissection with cutting portion of t he LigaSure with minimal cautery. No evidence of any through and through perforation of the posterio r vaginal wall. There was no need to stitch this, but it was cleaned out completely until normal tis schuyler was seen and handed off for permanent pathology. There was excellent hemostasis. The rectum was significantly lower in size. Left lateral wall endometriosis: Two tiny implants either carbonaceous material from previous surger y or implants. These were cauterized. Left oophorectomy: The peritoneum was dissected to isolate the IP pedicle. This was taken down with the help of the LigaSure. Specimen placed in the cul-de-sac. changed to a 5 and a specim en bag introduced through the umbilical port. Both ovaries were placed in the bag and after thorough irrigation and suction and hemostasis was secured, all the trocars were removed first and then the s pecimen bag with the umbilical Augustina was removed after desufflation. The fascial side here was clos ed with the tagged 0 Vicryl sutures tied to each other and interrupted 4-0 Vicryl sutures for all ski n incisions. Stoddard and sponge were removed. Instrument, needle, and sponge counts were correct at t he end of the case. The patient tolerated the procedure well, and she was recovered from anesthesia and taken to the PACU in a stable condition. Follow up in 1 week and 3 months and postop hormonal th mariusz. RANJEET/JULIAN Voice ID: [id number] Report ID: [id number]
[2024-05-08] MEDS: ONDANSETRON 4 MG/2 ML VIAL ONE (10:40)
[2024-05-08 10:56] VITALS: BP 110/60; TEMP 97; O2SAT 97
[2024-05-08] MEDS: PROMETHAZINE INJ 25 MG/ML AMP ONE (11:15)
[2024-05-08] MEDS: IBUPROFEN 400 MG TAB ONE (12:00)
[2024-05-08] MEDS: IBUPROFEN 200 MG TAB PO ONE (12:00)
== END 2024-05-08 12:10 | disposition home or self-care (01) ==
LOC: OR 06:30
PROVIDERS: ATTEND Obstetrics & Gynecology
PROC: 0UBG4ZZ Excision of Vagina, Percutaneous Endoscopic Approach (ICD-10-PCS; 2024-05-08)
PROC: 0DBW4ZZ Excision of Peritoneum, Percutaneous Endoscopic Approach (ICD-10-PCS; 2024-05-08)
PROC: 0UT24ZZ Resection of Bilateral Ovaries, Percutaneous Endoscopic Approach (ICD-10-PCS; principal; 2024-05-08 07:30)
DX: N83.12 Corpus luteum cyst of left ovary (principal); N83.11 Corpus luteum cyst of right ovary; R10.31 Right lower quadrant pain; R10.2 Pelvic and perineal pain; N80.A61 Endometriosis of right ureter, unspecified depth; N80.42 Endometriosis of rectovaginal septum with involvement of vagina; Z80.41 Family history of malignant neoplasm of ovary
CPT/HCPCS: 58661; 57061; 58662; 85025; 81001; 36415; 86900; 86850; 86901; 88305; 88307; J2550; J2704; J2710; J2003; J2250; J3010 ×2; J2175; J1171; J2405 ×2; J7120; A4314

== ENCOUNTER 2024-07-27 10:02 | Emergency (ER) | payer OTHER ==
--- OUTSIDE RECORDS SUMMARY | 2024-07-27 10:09 | XMS REPORT | Continuity of Care Document ---
Author Name Unknown Address [address] [facility] [place] [address] [facility] Address [address] [facility] [address] [place] [address] Care Team Providers Care Real Estate Agent/Broker Name Role Phone WOLFGANG HANNA Primary Care Physician UnavailDR JOHN Rubio Attending Clinician DR JOHN Guerrero Attending Clinician UnavailLiyah Henley Attending Clinician Unavailable Wolfgang Hanna Attending Clinician Unavailable SERA TORREZ Attending Clinician Melissa whittington Doctor Unassigned, [place] Attending Clinician U navailable WINTER BANKS Attending Clinician Unavail able [place] Attending Clinician + Provider, Candi Temp Attending Clinician Madai vaSera Mark CNM Attending Clinician [phone] GAYLE MORALES Attending Clinician GAYLE Ferguson Attending Clinician CARMEN Rosario Attending Clinician CELSA Lerner Attending Clinician DR JOHN Wong Admitting Clinician WINTER Cyr Admitting Clinician Unavail gita Payers Payer Name Policy Type Policy Number Effective Date Expirati on Date Source 0111 [id number] 2020 00:00:00 [facility] Individual Exchange Benefit Plan [id number] 2023 00:00:00 [facility] Ambetter from [facility] [id number] [facility] [id number] [facility] [id number] [facility] [id number] [facility] [id number] [facility] [id number] [facility] HTW-PENDING PENDING 2019 00:00:00 2019 00:00:00 Problems Condition Name Condition Details Condition Category Status Onset Date Resolution Date Last Treatment Date Treating Clinician Comments Source Scalding pain on urination Scalding Pain on Urination Problem Active 4-14 00:00: 00 [facility] Bacterial vaginosis Bacterial Vaginosis Problem Active 3-25 00:00: 00 [facility] Candidal vulvovagin itis Candidal Vulvovagin itis Problem Active 3-25 00:00: 00 [facility] Constipati on Constipati on Problem Active 3-24 00:00: 00 [facility] Insomnia Insomnia Problem Active 3-19 00:00: 00 [facility] Impaired cognition Impaired Cognition Problem Active 2-27 00:00: 00 [facility] Umbilical hernia Umbilical Hernia Problem Active 2-05 00:00: 00 [facility] Pain in pelvis Pain in Pelvis Problem Active 2-05 00:00: 00 [facility] Anxiety Anxiety Problem Active 2023-03 00:00: 00 [facility] Depressive disorder Depressive Disorder Problem Active 2023-03 00:00: 00 [facility] Migraine Migraine Problem Active 2023-03 00:00: 00 [facility] Subacute vaginitis Subacute Vaginitis Problem Active 2023-03 00:00: 00 [facility] Menopausal syndrome Menopausal Syndrome Problem Active 2023-03 00:00: 00 [facility] Heartburn Heartburn Problem Active 2023-03 00:00: 00 [facility] Incomplete emptying of urinary bladder Incomplete Emptying of Urinary Bladder Problem Active 2023-03 00:00: 00 [facility] Hyperchole sterolemia Hyperchole sterolemia Problem Active 2023-03 00:00: 00 [facility] Bipolar disorder Bipolar Disorder Problem Active 2023-03 00:00: 00 [facility] Breast pain, left Breast pain, left Disease Active 09-23 00:00: 00 [facility] Initiation of depot contracept ion done Initiation of Depot Contracept ion Done Problem Active 10-04 00:00: 00 [facility] Irritable bowel syndrome Irritable Bowel Syndrome Problem Active 09-13 00:00: 00 [facility] Irritable bowel syndrome characteri zed by constipati on Irritable Bowel Syndrome Characteri zed by Constipati on Problem Active 09-13 00:00: 00 [facility] Urgent desire to urinate Urgent Desire to Urinate Problem Active 09-13 00:00: 00 [facility] Inconclusi ve mammograph y finding Inconclusi ve Mammograph y Finding Problem Active 08-04 00:00: 00 [facility] Abnormal findings on diagnostic imaging of breast Abnormal Findings on Diagnostic Imaging of Breast Problem Active 08-04 00:00: 00 [facility] Overactive urinary bladder Overactive Urinary Bladder Problem Active 08-04 00:00: 00 [facility] Vaginal itching Vaginal itching Disease Active 2019-03 00:00: 00 [facility] Follicular cyst of ovary Follicular Cyst of Ovary Problem Active 2019-03 0- 00:00: 00 [facility] Low back pain Low Back Pain Problem Active 2019-03 00:00: 00 [facility] History of urinary tract infection History of Urinary Tract Infection Problem Active 2019-03 0 00:00: 00 [facility] UTI (urinary tract infection) UTI (urinary tract infection) Disease Active 04-21 00:00: 00 [facility] History of partial hysterecto my History of partial hysterecto my Disease Active 11-19 00:00: 00 Overview: Formattin g of this note might be different from the original. Reports still has ovaries [facility] History of depression History of depression Disease Active 11-19 00:00: 00 Overview: Formattin g of this note might be different from the original. Currently on zolft and latuda, managed by [facility] History of anxiety History of anxiety Disease Active 11-19 00:00: 00 [facility] Postoperat bruna hemorrhage Postoperat bruna Hemorrhage Problem Active 05-08 00:00: 00 [facility] Acute vaginitis Acute Vaginitis Problem Active 04-17 00:00: 00 [facility] Urinary tract infectious disease Urinary Tract Infectious Disease Problem Active 03-27 00:00: 00 [facility] Gastroesop hageal reflux disease without esophagiti s Gastroesop hageal Reflux Disease without Esophagiti s Problem Active 2015-03 00:00: 00 [facility] Microscopi c hematuria Microscopi c Hematuria Problem Active 2015-03 00:00: 00 [facility] Candidiasi s of vagina Candidiasi s of Vagina Problem Active 2015-03 00:00: 00 [facility] Gynecologi jonathan examinatio n abnormal Gynecologi jonathan Examinatio n Abnormal Problem Active 2015-03 00:00: 00 [facility] Female pelvic inflammato ry disease Female Pelvic Inflammato ry Disease Problem Active 2015-03 00:00: 00 [facility] Increased frequency of urination Increased Frequency of Urination Problem Active 2015-03 00:00: 00 [facility] Pelvic and perineal pain Pelvic and Perineal Pain Problem Active 2015-03 00:00: 00 [facility] Well woman exam Well woman exam Disease Active 2016-0 6-29 00:00: 00 [facility] Right lower quadrant pain Right Lower Quadrant Pain Problem Active 06-03 00:00: 00 [facility] Medical Contracept ion care education Contracept ion Care Education Problem Active 05-23 00:00: 00 [facility] Premenstru al tension syndrome Premenstru al Tension Syndrome Problem Active 05-20 00:00: 00 [facility] Polymenorr hea Polymenorr hea Problem Active 05-20 00:00: 00 [facility] Excessive menstruati on with irregular cycle Excessive Menstruati on with Irregular Cycle Problem Active 05-20 00:00: 00 [facility] Obesity (BMI 30-39.9) Obesity (BMI 30-39.9) Disease Active 11-11 00:00: 00 Overview: Formattin g of this note might be different from the original. 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 Flank pain Flank pain Disease Active 11-11 00:00: 00 [facility] Contracept bruna management Contracept bruna management Disease Active 09-16 00:00: 00 [facility] IBS (irritable bowel syndrome) IBS (irritable bowel syndrome) Disease Active 05-13 00:00: 00 [facility] Herpes-HSV 1 Herpes-HSV 1 Disease Active 05-13 00:00: 00 [facility] [id number] Tonsil stone Problem Common [facility] [id number] Memory deficit Problem [facility] [id number] Pure hyperchole sterolemia Problem [facility] Plantar fasciitis Plantar fasciitis Problem [facility] Panic disorder Panic attacks Problem [facility] Allergic rhinitis Allergic rhinitis Problem [facility] Atypical chest pain Atypical chest pain Problem [facility] Gastroesop hageal reflux disease GERD without esophagiti s Problem [facility] Fatigue Fatigue Problem [facility] Acute upper respirator y infection Upper respirator y infection, acute Problem [facility] [id number] Bipolar affective disorder, current episode manic, current episode severity unspecifie d Problem [facility] [id number] Diverticul osis Problem [facility] Chronic fatigue syndrome Chronic fatigue Problem [facility] Ovarian cyst Ovarian cyst Problem [facility] [id number] Chronic tonsilliti s Problem [facility] Mixed anxiety and depressive disorder Depression with anxiety Problem [facility] [id number] Dysuria Problem [facility] [id number] Recurrent UTI Problem [facility] [id number] Lower urinary tract symptoms (LUTS) Problem [facility] Seasonal allergy Seasonal allergies Problem [facility] Allergies, Adverse Reactions, Alerts Allergy Name Allergy Type Status Severity Reaction(s) Onset Date Inactive Date Treating Clinician Comments Source OMEPRAZO LE DRUG INGREDI Active Unknown-Cmnt 08-03 00:00: 00 [facility] Omeprazo le Propensi ty to adverse reaction s Active Unknown - See comments 08-03 00:00: 00 [facility] OMEPRAZO LE MAGNESIU M DRUG INGREDI Active Hives 07-14 00:00: 00 [facility] Omeprazo le Magnesiu m Propensi ty to adverse reaction s Active Hives 07-14 00:00: 00 [facility] No Known Allergie s DA Active [facility] Methylpr ednisolo ne Allergy to substanc e Active [facility] Prilosec Allergy to substanc e Active [facility] Prilosec DA Active Unknown Hives [facility] Methylpr ednisolo ne DA Active Unknown throat swelling [facility] Social History Social Habit Start Date Stop Date Quantity Comments Source Sexual orientation U [facility] History SDOH Alcohol Frequency [facility] History SDOH Alcohol Std Drinks [facility] History SDOH Alcohol Binge [facility] History of Tobacco Use [facility] Sex Assigned At [facility] Alcohol intake 2023-04-10 00:00:00 2023-04-10 00:00:00 0 /d [facility] Exposure to SARS-CoV-2 (event) 2022-04-28 00:00:00 2022-05-08 09:21:00 Not sure [facility] History of Social function 2022-05-02 00:00:00 2022-05-02 00:00:00 [facility] Tobacco use and exposure 2021-12-21 00:00:00 2021-12-21 00:00:00 Smokeless tobacco non-user [facility] Alcohol Comment 2014-09-14 00:00:00 2014-09-14 00:00:00 socially [facility] Smoking Status Start Date Stop Date Source Never Smoker [facility] Medications Ordered Medication Name Filled Medication Name Start Date Stop Date Current Medication? Ordering Clinician Indication Dosage Frequency Signature (SIG) Comments Components Source SOLU-Medrol SOLU-Medrol 06-25 00:00: 00 No 80mg [facility] sulfamethox azole-trime thoprim (BACTRIM DS) 800-160 mg per tablet 2021-03 005 00:00: 00 12-25 04:59 :00 No [id number] 1{tbl} Take 1 tablet by mouth in the morning and 1 tablet in the evening. Do all this for [address] [facility] PANTOPRAZOL E SODIUM (PROTONIX ORAL) 9-03 09:31: 21 Yes [id number] 40mg Take 40 mg by mouth daily. [facility] estradiol 0.1 mg/24 hr semiweekly transdermal patch Apply 1 patch twice a week by transdermal route for 30 days. estradiol 0.1 mg/24 hr semiweekly transdermal patch Apply 1 patch twice a week by transdermal route for 30 days. No 1patch( es) Q3.5D estradiol 0.1 mg/24 hr semiweekly transderma l patch Apply 1 patch twice a week by transderma l route for 30 days. [facility] estradiol 0.01% (0.1 mg/gram) vaginal cream INSERT 0.5 G VAGINALY THREE TIMES A WEEK. estradiol 0.01% (0.1 mg/gram) vaginal cream INSERT 0.5 G VAGINALY THREE TIMES A WEEK. No estradiol 0.01% (0.1 mg/gram) vaginal cream INSERT 0.5 G VAGINALY THREE TIMES A WEEK. [facility] famotidine 40 mg tablet TAKE ONE (1) TABLET(S) BY MOUTH EVERY DAY. famotidine 40 mg tablet TAKE ONE (1) TABLET(S) BY MOUTH EVERY DAY. No famotidine 40 mg tablet TAKE ONE (1) TABLET(S) BY MOUTH EVERY DAY. [facility] pantoprazol e 40 mg tablet,zac yed release TAKE ONE (1) TABLET(S) BY MOUTH ONCE A DAY. pantoprazol e 40 mg tablet,zac yed release TAKE ONE (1) TABLET(S) BY MOUTH ONCE A DAY. No pantoprazo le 40 mg tablet,del ayed release TAKE ONE (1) TABLET(S) BY MOUTH ONCE A DAY. [facility] Miralax Miralax No Miralax [facility] Probiotic Probiotic No Probiotic [facility] progesteron e micronized 200 mg capsule TAKE ONE (1) CAPSULE(S) BY MOUTH DAILY. progesteron e micronized 200 mg capsule TAKE ONE (1) CAPSULE(S) BY MOUTH DAILY. No 1capsul e(s) Q1D progestero ne micronized 200 mg capsule TAKE ONE (1) CAPSULE(S) BY MOUTH DAILY. [facility] Vitamin D3 Vitamin D3 No Vitamin D3 [facility] fluconazole 150 mg tablet 1 tablet; now, then again in 72 hours; 4 day(s) fluconazole 150 mg tablet 1 tablet; now, then again in 72 hours; 4 day(s) No fluconazol e 150 mg tablet 1 tablet; now, then again in 72 hours; 4 day(s) [facility] gabapentin 100 mg capsule TAKE ONE (1) CAPSULE(S) BY MOUTH TWICE A DAY. gabapentin 100 mg capsule TAKE ONE (1) CAPSULE(S) BY MOUTH TWICE A DAY. No gabapentin 100 mg capsule TAKE ONE (1) CAPSULE(S) BY MOUTH TWICE A DAY. [facility] tizanidine 4 mg tablet TAKE ONE (1) TABLET(S) BY MOUTH ONCE A DAY AT BEDTIME. tizanidine 4 mg tablet TAKE ONE (1) TABLET(S) BY MOUTH ONCE A DAY AT BEDTIME. No tizanidine 4 mg tablet TAKE ONE (1) TABLET(S) BY MOUTH ONCE A DAY AT BEDTIME. [facility] Famotidine 40 MG Famotidine 40 MG No 1{table t_at_be dtime_a s_neede d} QD Famotidine 40 MG Protonix 40 MG Protonix 40 MG No 1{table t} QD Protonix 40 MG Acetaminoph en-Caffeine 500-65 MG Acetaminoph en-Caffeine 500-65 MG No 2{table ts_as_n eeded} QID Acetaminop hen-Caffei ne 500-65 MG Immunizations Ordered Immunization Name Filled Immunization Name Date Status Comments Source SARS-COV-2 COVID-19 VACCINE - (MODERNA) 2020-12-15 00:00:00 Completed [facility] Influenza Virus Vaccine Quad .5 mL IM 6+ MO 2020-12-15 00:00:00 Completed [facility] SARS-COV-2 COVID-19 VACCINE - (MODERNA) 2020-12-15 00:00:00 Completed [facility] Influenza Virus Vaccine Quad .5 mL IM 6+ MO 2020-12-15 00:00:00 Completed [facility] Moderna COVID-19 Vaccine Moderna COVID-19 Vaccine 2020-12-02 11:37:00 Completed [facility] Afluria Afluria 2020-12-02 11:37:00 Completed [facility] Moderna COVID-19 Vaccine Moderna COVID-19 Vaccine 2020-12-02 11:37:00 Completed [facility] Afluria Afluria 2020-12-02 11:37:00 Completed [facility] Moderna COVID-19 Vaccine Moderna COVID-19 Vaccine 2020-12-02 11:37:00 Completed [facility] Afluria Afluria 2020-12-02 11:37:00 Completed [facility] Moderna COVID-19 Vaccine Moderna COVID-19 Vaccine 2020-11-01 11:36:00 Completed [facility] Moderna COVID-19 Vaccine Moderna COVID-19 Vaccine 2020-11-01 11:36:00 Completed [facility] Moderna COVID-19 Vaccine Moderna COVID-19 Vaccine 2020-11-01 11:36:00 Completed [facility] SARS-COV-2 COVID-19 VACCINE - (MODERNA) 2020-11-01 00:00:00 Completed [facility] SARS-COV-2 COVID-19 VACCINE - (MODERNA) 2020-11-01 00:00:00 Completed [facility] TDAP 2012-06-03 00:00:00 Completed [facility] TDAP 2012-06-03 00:00:00 Completed [facility] TDAP 2012-06-03 00:00:00 Completed [facility] TDAP 2012-06-03 00:00:00 Completed [facility] TDAP 2012-06-03 00:00:00 Completed [facility] TDAP 2012-06-03 00:00:00 Completed [facility] TDAP 2012-06-03 00:00:00 Completed [facility] TDAP 2012-06-03 00:00:00 Completed [facility] TDAP 2012-06-03 00:00:00 Completed [facility] TDAP Unknown Completed [facility] SARS-COV-2 COVID-19 VACCINE - (MODERNA) Unknown Completed [facility] Influenza Virus Vaccine Quad .5 mL IM 6+ MO (FLUZONE/FLULAVAL/F LUARIX) Unknown Completed [facility] Moderna COVID-19 Vaccine Moderna COVID-19 Vaccine Unknown Completed [facility] Afluria Afluria Unknown Completed [facility] Moderna COVID-19 Vaccine Moderna COVID-19 Vaccine Unknown Completed [facility] Afluria Afluria Unknown Completed [facility] Moderna COVID-19 Vaccine Moderna COVID-19 Vaccine Unknown Completed [facility] Afluria Afluria Unknown Completed [facility] Boostrix (Tdap) Boostrix (Tdap) Unknown Completed [facility] Moderna COVID-19 Vaccine Moderna COVID-19 Vaccine Unknown Completed [facility] Afluria Afluria Unknown Completed [facility] Boostrix (Tdap) Boostrix (Tdap) Unknown [facility] Vaccine Moderna COVID-19 Vaccine Unknown Completed [facility] Afluria Afluria Unknown Completed [facility] Boostrix (Tdap) Boostrix (Tdap) Unknown Completed [facility] COVID-19 Vaccine Moderna COVID-19 Vaccine Unknown Completed [facility] Afluria Afluria Unknown Completed [facility] Boostrix (Tdap) Boostrix (Tdap) Unknown Completed [facility] COVID-19 Vaccine Moderna COVID-19 Vaccine Unknown Completed [facility] Afluria Afluria Unknown Completed [facility] Boostrix (Tdap) Boostrix (Tdap) Unknown Completed [facility] COVID-19 Vaccine Moderna COVID-19 Vaccine Unknown Completed [facility] Afluria Afluria Unknown Completed [facility] Boostrix (Tdap) Boostrix (Tdap) Unknown Completed [facility] COVID-19 Vaccine Moderna COVID-19 Vaccine Unknown Completed [facility] Afluria Afluria Unknown Completed Common [facility] Boostrix (Tdap) Boostrix (Tdap) Unknown Completed [facility] Vital Signs Vital Name Observation Time Observation Value Comments S ource Height 2024-04-11 14:24:00 162.56 CM Weight 2024-04-11 14:24:00 84.54 KG BP Systolic 2024-06-09 00:00:00 111 mm[Hg] [facility] Height 2024-06-09 00:00:00 64 [in_i] [facility] BP Diastolic 2024-06-09 00:00:00 66 mm[Hg] [facility] Body Weight 2024-06-09 00:00:00 187.6 [lb_av] [facility] BMI (Body Mass Index) 2024-06-09 00:00:00 32.2 kg/m2 [facility] BP Diastolic 2024-05-15 00:00:00 72 mm[Hg] [facility] Weight 2024-05-15 00:00:00 184.4 [lb_av] [facility] BMI (Body Mass Index) 2024-05-15 00:00:00 31.7 kg/m2 [facility] BP Systolic 2024-05-15 00:00:00 107 mm[Hg] [facility] Height 2024-05-15 00:00:00 64 [in_i] [facility] Body Weight 2024-04-23 00:00:00 186.6 [lb_av] [facility] BP Diastolic 2024-04-23 00:00:00 72 mm[Hg] [facility] BP Systolic 2024-04-23 00:00:00 123 mm[Hg] [facility] BMI (Body Mass Index) 2024-04-23 00:00:00 32 kg/m2 [facility] Height 2024-04-23 00:00:00 64 [in_i] [facility] Height 2024-04-14 09:30:00 162.56 CM Weight 2024-04-14 09:30:00 85.3 KG Height 2024-04-11 14:24:00 162.56 CM Weight 2024-04-11 14:24:00 84.54 KG height 2024-03-03 10:00:00 65.5 [in_i] [facility] weight 2024-03-03 10:00:00 190.6 [lb_av] Co mmon [facility] temperature 2024-03-03 10:00:00 97.3 [degF] Com mon [facility] bmi 2024-03-03 10:00:00 31.23 kg/m2 Comm on [facility] oximetry 2024-03-03 10:00:00 99 % Commo n [facility] respiratory rate 2024-03-03 10:00:00 16 /min [facility] blood pressure systolic 2024-03-03 10:00:00 128 mm[Hg] Common [facility] blood pressure diastolic 2024-03-03 10:00:00 76 mm[Hg] [facility] Body Weight 2024-02-08 00:00:00 193.4 [lb_av] [facility] Height 2024-02-08 00:00:00 64 [in_i] [facility] BMI (Body Mass Index) 2024-02-08 00:00:00 33.2 kg/m2 [facility] Body Weight 2024-01-23 00:00:00 193.4 [lb_av] [facility] BP Systolic 2024-01-23 00:00:00 120 mm[Hg] [facility] BMI (Body Mass Index) 2024-01-23 00:00:00 33.2 kg/m2 [facility] BP Diastolic 2024-01-23 00:00:00 89 mm[Hg] [facility] Height 2024-01-23 00:00:00 64 [in_i] [facility] height 2024-01-04 13:20:00 65.5 [in_i] Comm on [facility] weight 2024-01-04 13:20:00 194 [lb_av] Comm on [facility] temperature 2024-01-04 13:20:00 97.3 [degF] Com mon [facility] bmi 2024-01-04 13:20:00 31.79 kg/m2 Comm on [facility] height 2023-12-13 11:00:00 65.5 [in_i] Comm on [facility] weight 2023-12-13 11:00:00 194.6 [lb_av] Co m[facility] temperature 2023-12-13 11:00:00 97.3 [degF] Com mon [facility] bmi 2023-12-13 11:00:00 31.89 kg/m2 Comm on [facility] oximetry 2023-12-13 11:00:00 99 % Commo n [facility] respiratory rate 2023-12-13 11:00:00 16 /min [facility] blood pressure systolic 2023-12-13 11:00:00 130 mm[Hg] [facility] blood pressure diastolic 2023-12-13 11:00:00 76 mm[Hg] [facility] height 2023-11-27 08:40:00 65.5 [in_i] Comm on [facility] weight 2023-11-27 08:40:00 196 [lb_av] Comm on [facility] temperature 2023-11-27 08:40:00 97.5 [degF] Com [facility] bmi 2023-11-27 08:40:00 32.12 kg/m2 Comm on [facility] oximetry 2023-11-27 08:40:00 98 % Commo n [facility] respiratory rate 2023-11-27 08:40:00 16 /min [facility] blood pressure systolic 2023-11-27 08:40:00 120 mm[Hg] [facility] blood pressure diastolic 2023-11-27 08:40:00 72 mm[Hg] [facility] height 2023-11-02 10:40:00 65.5 [in_i] Comm on [facility] weight 2023-11-02 10:40:00 197 [lb_av] Comm on [facility] temperature 2023-11-02 10:40:00 97.2 [degF] Com [facility] bmi 2023-11-02 10:40:00 32.28 kg/m2 Comm on [facility] oximetry 2023-11-02 10:40:00 99 % Commo n [facility] respiratory rate 2023-11-02 10:40:00 16 /min [facility] blood pressure systolic 2023-11-02 10:40:00 126 mm[Hg] [facility] blood pressure diastolic 2023-11-02 10:40:00 70 mm[Hg] Common [facility] height 2023-08-31 11:20:00 65.5 [in_i] Comm on [facility] weight 2023-08-31 11:20:00 204.6 [lb_av] Co mmon [facility] temperature 2023-08-31 11:20:00 97.8 [degF] Com mon [facility] bmi 2023-08-31 11:20:00 33.53 kg/m2 Comm on [facility] oximetry 2023-08-31 11:20:00 99 % Commo n [facility] respiratory rate 2023-08-31 11:20:00 16 /min [facility] blood pressure systolic 2023-08-31 11:20:00 112 mm[Hg] Common [facility] blood pressure diastolic 2023-08-31 11:20:00 62 mm[Hg] Common [facility] height 2023-06-18 12:00:00 65.5 [in_i] Comm on [facility] weight 2023-06-18 12:00:00 207 [lb_av] Comm on [facility] bmi 2023-06-18 12:00:00 33.92 kg/m2 Comm on [facility] height 2023-05-29 13:00:00 65.5 [in_i] Comm on [facility] weight 2023-05-29 13:00:00 207.6 [lb_av] Co mmon [facility] temperature 2023-05-29 13:00:00 97.6 [degF] Com mon [facility] bmi 2023-05-29 13:00:00 34.02 kg/m2 Comm on [facility] oximetry 2023-05-29 13:00:00 98 % Commo n [facility] respiratory rate 2023-05-29 13:00:00 16 /min [facility] blood pressure systolic 2023-05-29 13:00:00 130 mm[Hg] [facility] blood pressure diastolic 2023-05-29 13:00:00 72 mm[Hg] [facility] height 2023-04-19 09:20:00 65.5 [in_i] Comm on [facility] weight 2023-04-19 09:20:00 207 [lb_av] Comm on [facility] temperature 2023-04-19 09:20:00 97.4 [degF] Com mon [facility] bmi 2023-04-19 09:20:00 33.92 kg/m2 Comm on [facility] oximetry 2023-04-19 09:20:00 98 % Commo n [facility] respiratory rate 2023-04-19 09:20:00 16 /min [facility] blood pressure systolic 2023-04-19 09:20:00 113 mm[Hg] [facility] blood pressure diastolic 2023-04-19 09:20:00 71 mm[Hg] [facility] Systolic blood pressure 2022-05-08 15:21:00 118 mm[Hg] [facility] Diastolic blood pressure 2022-05-08 15:21:00 77 mm[Hg] [facility] Heart rate 2022-05-08 15:21:00 64 /[facility] 2022-05-08 15:21:00 35.17 Mila [facility] Respiratory rate 2022-05-08 15:21:00 18 /min [facility] Body height 2022-05-08 15:21:00 165.1 cm [facility] Body weight 2022-05-08 15:21:00 91.173 kg [facility] BMI 2022-05-08 15:21:00 33.45 kg/m2 [facility] Systolic blood pressure 2022-05-02 14:37:00 110 mm[Hg] [facility] Diastolic blood pressure 2022-05-02 14:37:00 72 mm[Hg] [facility] Heart rate 2022-05-02 14:37:00 71 /min Unive [facility] Body temperature 2022-05-02 14:37:00 36.17 Mila [facility] Respiratory rate 2022-05-02 14:37:00 18 /min [facility] Body height 2022-05-02 14:37:00 165.1 cm [facility] Body weight 2022-05-02 14:37:00 91.354 kg [facility] BMI 2022-05-02 14:37:00 33.51 kg/m2 [facility] Systolic blood pressure 2021-12-21 20:31:00 105 mm[Hg] [facility] Diastolic blood pressure 2021-12-21 20:31:00 63 mm[Hg] [facility] Heart rate 2021-12-21 20:31:00 74 /min Unive [facility] Body temperature 2021-12-21 20:31:00 36.22 Mila [facility] Respiratory rate 2021-12-21 20:31:00 18 /min [facility] Body weight 2021-12-21 20:31:00 87.499 kg [facility] BMI 2021-12-21 20:31:00 32.10 kg/m2 [facility] Systolic blood pressure 2021-09-23 19:34:00 116 mm[Hg] [facility] Diastolic blood pressure 2021-09-23 19:34:00 60 mm[Hg] [facility] Heart rate 2021-09-23 19:34:00 67 /min Unive [facility] Body temperature 2021-09-23 19:34:00 36.67 Mila [facility] Respiratory rate 2021-09-23 19:34:00 20 /min [facility] Body height 2021-09-23 19:34:00 165.1 cm [facility] Body weight 2021-09-23 19:34:00 86.297 kg [facility] BMI 2021-09-23 19:34:00 31.66 kg/m2 [facility] blood pressure diastolic 2021-01-03 11:20:00 70 mm[Hg] [facility] height 2021-01-03 11:20:00 64.00 [in_i] Com mon [facility] weight 2021-01-03 11:20:00 180.2 [lb_av] Co mmon [facility] temperature 2021-01-03 11:20:00 96.7 [degF] Com [facility] bmi 2021-01-03 11:20:00 30.93 kg/m2 Comm on [facility] oximetry 2021-01-03 11:20:00 100 % Commo n [facility] respiratory rate 2021-01-03 11:20:00 18 /min [facility] blood pressure systolic 2021-01-03 11:20:00 110 mm[Hg] [facility] Height 2020-09-07 07:55:00 162.56 CM Weight 2020-09-07 07:55:00 87.08 KG Height 2020-08-31 13:13:00 162.56 CM Weight 2020-08-31 13:13:00 88.9 KG Height 2020-09-07 07:55:00 162.56 CM Weight 2020-09-07 07:55:00 87.08 KG Procedures Procedure Date / Time Performed Performing Clinician Source CT, abdomen + pelvis, w/ contrast 2024-06-09 00:00:00 [facility] Medical Oophorectomy 2024-05-08 00:00:00 Napoleon bravo EXC ESOPH VIA LILIANA ART OP ENDO DX 2024-04-14 00:00:00 [facility] EXC STOM PYLORUS LILIANA/ART OP ENDO DX 2024-04-14 00:00:00 [facility] CT, abdomen + pelvis, w/wo contrast 2024-02-08 00:00:00 [facility] US TRANSVAGINAL 2024-01-25 00:00:[address] [facility] Medical CT, abdomen + pelvis, w/wo contrast 2024-01-23 00:00:00 [facility] Medical AUTHORIZATION FOR RELEASE OF PHI 2023-04-19 06:01:00 Doctor Unassigned, [place] [facility] POCT URINALYSIS W/O SPECIFIC GRAVITY 2022-05-08 15:28:00 Winter Banks [facility] POCT URINALYSIS W/O SPECIFIC GRAVITY 2022-05-02 14:38:00 Sera Torrez [facility] ASSIGNMENT OF BENEFITS 2022-05-02 14:25:11 Erik r Unassigned, [place] [facility] POCT URINALYSIS W/O SPECIFIC GRAVITY 2021-12-21 20:35:00 Gayle Morales [facility] EX REC VIA LILIANA OR ART OPEN ENDO DX 2020-09-07 00:00:00 [facility] EX SIG COLON VIA LILIANA/ART OP ENDO DX 2020-09-07 00:00:00 [facility] EX DUODENUM LILIANA/ART OPENING ENDO DX 2020-09-07 00:00:00 [facility] EXC STOMACH LILIANA/ART OPENING ENDO DX 2020-09-07 00:00:00 [facility] EXCISION EGJ VIA LILIANA ART OP ENDO DX 2020-09-07 00:00:00 [facility] EX REC VIA [facility]NA OR ART OPEN ENDO DX 2020-09-07 00:00:00 [facility] EX SIG COLON VIA LILIANA/ART OP ENDO DX 2020-09-07 00:00:00 [facility] EX DUODENUM LILIANA/ART OPENING ENDO DX 2020-09-07 00:00:00 [facility] EXC STOMACH LILIANA/ART OPENING ENDO DX 2020-09-07 00:00:00 [facility] EXCISION EGJ VIA LILIANA ART OP ENDO DX 2020-09-07 00:00:00 [facility] Hysterectomy (Ovaries Remain) 2015-03-19 00:00:00 [facility] En[facility] Start Date/Time End Date/Time Encounter Type Admission Type Attending Critical [facility] Care Facility Care Department Encounter ID Source 2024-04-14 11:00:00 Inpatient JOHN LAND AMANDEEP [facility] [id number] [facility] 2024-02-28 15:22:00 Outpatient Mahmood Liyah STLMLC STLMLC [id number] [facility] 2024-01-02 09:18:00 Outpatient Mahmood Liyah STLMLC STLMLC [id number] [facility] 2023-11-01 11:11:01 Outpatient MahmoodKalyni STLMLC STLMLC [id number] [facility] 2023-06-25 14:06:00 Outpatient Mahmood Liyah STLMLC STLMLC [id number] [facility] 2023-06-22 11:06:00 Outpatient MahmoodKalyni STLMLC STLMLC [id number] [facility] 2023-06-18 11:14:00 Outpatient MahmoodKalyni STLMLC STLMLC [id number] [facility] 2023-04-19 07:18:00 Outpatient Mahmood Liyah STLMLC STLMLC [id number] [facility] 2023-04-06 09:08:00 Outpatient MahmoodKalyni STLMLC STLMLC [id number] [facility] 2023-04-05 08:52:00 Outpatient Mahmood Liyah STLMLC STLMLC [id number] [facility] 2022-03-07 09:27:00 Outpatient Wolfgang Hanna STLMLC STLMLC [id number] [facility] 2022-03-06 07:56:01 Outpatient Wolfgang Hanna STLMLC STLMLC [id number] [facility] 2022-01-20 16:49:00 Outpatient Hanna, Na STLMLC STLMLC [id number] [facility] 2021-11-09 16:09:00 Outpatient Hanna, Na STLMLC STLMLC [id number] [facility] 2021-04-21 14:19:01 Outpatient Hanna, Na STLMLC STLMLC [id number] [facility] 2021-04-13 13:39:11 Outpatient Hanna, Na STLMLC STLMLC [id number] [facility] 2021-04-13 13:21:25 Outpatient Hanna, Na STLMLC STLMLC [id number] [facility] 2021-04-13 13:02:54 Outpatient Hanna, Na STLMLC STLMLC [id number] [facility] 2021-04-13 13:02:00 Outpatient Hanna, Na STLMLC STLMLC [id number] [facility] 2021-04-13 13:01:15 Outpatient Hanna, Na STLMLC STLMLC [id number] [facility] 2021-04-13 12:54:59 Outpatient Hanna, Na STLMLC STLMLC [id number] [facility] 2021-04-13 12:03:11 Outpatient Hanna, Na STLMLC STLMLC [id number] [facility] 2021-04-13 11:45:30 Outpatient Hanna, Na STLMLC STLMLC [id number] [facility] 2021-04-13 11:44:40 Outpatient Hanna, Na STLMLC STLMLC [id number] [facility] 2021-04-13 11:16:05 Outpatient Hanna, Na STLMLC STLMLC [id number] [facility] 2021-04-13 11:06:13 Outpatient Wolfgang Hanna [facility] [id number] [facility] 2024-06-30 00:00:00 2024-06-30 00:00:00 JANA Shirley: [address], [place] [address] , Ph. [facility] - GC_GCBZW_Ri yvonne [place]* [id number] [facility] 2024-06-09 00:00:00 2024-06-09 00:00:00 JANA Hernandez: [address], [address] , Ph. [facility] - GC_GCBZW_Sarah russell [place]* [id number] [facility] 2024-05-15 00:00:00 2024-05-15 00:00:00 JANA Hernandez: [address], [place] [address] , Ph. [facility] - GC_GCBZW_Ri yvonne [place]* [id number] [facility] 2024-04-23 00:00:00 2024-04-23 00:00:00 Morenita Strauss MD: [address], [place] [address] , Ph. [facility] GC_GCBZW_Ri yvonne [place]* [id number] [facility] 2024-04-14 09:29:00 2024-04-14 11:41:00 Outpatient JOHN LAND AMANDEEP [facility] [id number] [facility] 2024-04-02 00:00:00 2024-04-02 00:00:00 JANA Shirley: [address], [place] [address] , Ph. [facility] - GC_GCBZW_[facility]* [id number] [facility] 2024-03-03 00:00:00 2024-03-03 00:00:00 OFFICE VISIT ESTAB [facility]EVEL [address] [facility] [facility] [id number] 2024-02-29 00:00:00 2024-02-29 00:00:00 [facility] [id number] [facility] 2024-02-25 00:00:00 2024-02-25 00:00:00 Morenita Strauss MD: [address], [place] [address] , Ph. [facility] - GC_GCBZW_[facility]* [id number] [facility] 2024-02-20 00:00:00 2024-02-20 00:00:00 Morenita Strauss MD: [address], [place] [address] , Ph. [facility] - GC_GCBZW_Ri yvonne [place]* [id number] [facility] 2024-02-08 00:00:00 2024-02-08 00:00:00 Morenita Strauss MD: [address], [place] [address] , Ph. [facility] - GC_GCBZW_Ri yvonne [place]* [id number] [facility] 2024-01-25 00:00:00 2024-01-25 00:00:00 Morenita Strauss MD: [address], [place] [address] , Ph. [facility] - GC_GCBZW_Ri yvonne Rakan* [id number] [facility] 2024-01-23 00:00:00 2024-01-23 00:00:00 Morenita Strauss MD: [address] [place] [address] [address], [facility] [address], [place] [address] , Ph. [facility] - GC_GCBZW_La yvonne Bledsoe* [id number] [facility] 2024-01-15 00:00:00 2024-01-15 00:00:00 (TEL) STLMLC STLMLC [id number] [facility] 2024-01-04 00:00:00 2024-01-04 00:00:00 OFFICE VISIT ESTAB PT LEVEL 4 STLMLC STLMLC [id number] [facility] 2023-12-31 00:00:00 2023-12-31 00:00:00 (TEL) STLMLC STLMLC [id number] [facility] 2023-12-13 00:00:00 2023-12-13 00:00:00 (TEL) STLMLC STLMLC [id number] [facility] 2023-12-13 00:00:00 2023-12-13 00:00:00 OFFICE VISIT ESTAB PT LEVEL 4 STLMLC STLMLC [id number] [facility] 2023-12-13 00:00:00 2023-12-13 00:00:00 (TEL) STLMLC STLMLC [id number] [facility] 2023-11-27 00:00:00 2023-11-27 00:00:00 OFFICE VISIT ESTAB PT LEVEL 3 STLMLC STLMLC [id number] [facility] 2023-11-05 00:00:00 2023-11-05 00:00:00 (TEL) STLMLC STLMLC [id number] [facility] 2023-11-02 00:00:00 2023-11-02 00:00:00 OFFICE VISIT ESTAB PT LEVEL 3 STLMLC STLMLC [id number] [facility] 2023-11-01 00:00:00 2023-11-01 00:00:00 (TEL) STLMLC STLMLC [id number] [facility] 2023-08-31 00:00:00 2023-08-31 00:00:00 OFFICE VISIT ESTAB PT LEVEL 4 STLMLC STLMLC [id number] [facility] 2023-06-22 00:00:00 2023-06-22 00:00:00 (TEL) STLMLC STLMLC [id number] [facility] 2023-06-21 00:00:00 2023-06-21 00:00:00 (TEL) STLMLC STLMLC [id number] [facility] 2023-06-19 00:00:00 2023-06-19 00:00:00 (TEL) STLMLC STLMLC [id number] [facility] 2023-06-18 00:00:00 2023-06-18 00:00:00 (TEL) STLMLC STLMLC [id number] [facility] 2023-06-18 00:00:00 2023-06-18 00:00:00 OFFICE VISIT ESTAB PT LEVEL 3 STLMLC STLMLC [id number] [facility] 2023-05-29 00:00:00 2023-05-29 00:00:00 (WELLNESS) Wellness Visit STLMLC STLMLC [id number] [facility] 2023-04-19 00:00:00 2023-04-19 00:00:00 Orders Only Doctor Unassigned, [place] [facility] [id number] 350.1.13.10 4.2.7.2.[id number] [facility] 2023-04-19 00:00:00 2023-04-19 00:00:00 OFFICE VISIT ESTAB PT LEVEL 4 STLMLC STLMLC [id number] [facility] 2023-04-05 00:00:00 2023-04-05 00:00:00 (TEL) STLMLC STLMLC [id number] [facility] 2023-03-14 13:56:29 2023-03-14 13:56:29 Outpatient [facility] [id number] Mannie Yusuf 2022-07-03 08:19:11 2022-07-03 08:19:11 Outpatient [facility] [id number] Mannie Yusuf 2022-05-24 06:58:52 2022-05-24 23:59:00 Outpatient R WINTER BANKS [facility] [id number] [facility] 2022-05-24 06:58:52 2022-05-24 23:59:00 Hospital Encounter Winter Banks [facility] .2.840.114 350.1.13.10 4.2.7.2.[id number] [facility] 2022-05-16 15:00:00 2022-05-16 15:00:00 Outpatient R WINTER BANKS [facility] [id number] [facility] 2022-05-09 13:15:00 2022-05-09 13:15:00 Outpatient R WINTER BANKS [facility] [id number] [facility] 2022-05-08 09:15:00 2022-05-08 10:13:19 Outpatient R WINTER BANKS [facility] [id number] [facility] 2022-05-08 09:15:00 2022-05-08 10:13:19 Office Visit Winter Banks [facility] VISUAL SPECIALIST [facility] .2.840.114 350.1.13.10 4.2.7.2.[id number] [facility] 2022-05-02 08:30:00 2022-05-02 09:03:25 Outpatient R SERA TORREZ [facility] [id number] [facility] 2022-05-02 08:30:00 2022-05-02 09:03:25 Office Visit Provider, Sera Goldne [facility] VISUAL SPECIALIST [facility] 1..114 350.1.13.10 4.2.7.2.[id number] [facility] 2022-05-02 00:00:00 2022-05-02 00:00:00 Orders Only Doctor Unassigned, [place] [facility] 1..114 350.1.13.10 4.2.7.2.[id number] [facility] 2022-05-01 00:00:00 2022-05-01 00:00:00 Telephone Winter Banks [facility] VISUAL SPECIALIST [facility] 1..114 350.1.13.10 4.2.7.2.[id number] [facility] 2022-04-04 13:15:00 2022-04-04 13:15:00 Outpatient R WINTER BANKS [facility] [id number] [facility] 2022-04-04 13:15:00 2022-04-04 13:15:00 Outpatient R WINTER BANKS [facility] [id number] [facility] 2022-03-08 00:00:00 2022-03-08 00:00:00 OFFICE VISIT EST PT LEVEL 3 STLMLC ST[facility]C [id number] [facility] 2021-12-21 15:30:00 2021-12-21 15:46:18 Outpatient R GAYLE MORALES EMILY [facility] [id number] [facility] 2021-12-21 15:30:00 2021-12-21 15:46:18 Office Visit Provider, Gayle Chaudhary [facility] VISUAL SPECIALIST [facility] 1..114 350.1.13.10 4.2.7.2.[id number] [facility] 2021-12-21 14:00:00 2021-12-21 14:00:00 Outpatient R WINTER BANKS [facility] [id number] [facility] 2021-12-21 00:00:00 2021-12-21 00:00:00 Telephone Winter Banks [facility] VISUAL SPECIALIST [facility] 1..840.114 350.1.13.10 4.2.7.2.[id number] [facility] 2021-12-20 00:00:00 2021-12-20 00:00:00 Telephone Winter Banks [facility] VISUAL SPECIALIST [facility] 1..840.114 350.1.13.10 4.2.7.2.[id number] [facility] 2021-11-24 08:15:00 2021-11-24 08:15:00 Outpatient R WINTER BANKS [facility] [id number] [facility] 2021-11-09 00:00:00 2021-11-09 00:00:00 [facility] [id number] 2021-10-14 00:00:00 2021-10-14 00:00[facility] [id number] [facility] 2021-09-23 14:45:00 2021-09-23 14:57:56 Outpatient R WINTER BANKS [facility] [id number] [facility] 2021-09-23 14:45:00 2021-09-23 14:57:56 Office Visit Winter Banks [facility] VISUAL SPECIALIST [facility] 1..840.114 350.1.13.10 4.2.7.2.[id number] [facility] 2021-09-22 00:00:00 2021-09-22 00:00:00 Telephone Winter Banks [facility] VISUAL SPECIALIST [facility] 1..840.114 350.1.13.10 4.2.7.2.[id number] [facility] 2021-07-27 00:00:00 2021-07-27 00:00:00 OFFICE VISIT EST PT LEVEL 3 STLMLC STLC [id number] [facility] 2021-06-02 00:00:00 2021-06-02 00:00:00 Telephone Winter Banks [facility] VISUAL SPECIALIST [facility] 1..840.114 350.1.13.10 4.2.7.2.[id number] [facility] 2021-05-24 06:35:49 2021-05-24 23:59:00 Outpatient R WINTER BANKS [facility] [id number] [facility] 2021-05-24 06:35:49 2021-05-24 23:59:00 Hospital Encounter Winter Banks [facility] 1..840.114 350.1.13.10 4.2.7.2.[id number] [facility] 2021-05-24 00:00:00 2021-05-24 00:00:00 Outpatient R WINTER BANKS [facility] [id number] [facility] 2021-04-25 00:00:00 2021-04-25 00:00:00 OFFICE VISIT EST PT LEVEL 3 STLMLC STLMLC [id number] [facility] 2021-04-01 09:30:00 2021-04-01 10:18:21 Office Visit Winter Banks [facility] VIS[facility] SPECIALIST [facility] 1..840.114 350.1.13.10 4.2.7.2.[id number] [facility] 2021-04-01 09:30:00 2021-04-01 10:18:21 Outpatient WINTER GOLDSTEIN [facility] [id number] [facility] 2021-04-01 00:00:00 2021-04-01 00:00:00 Orders Only Doctor Unassigned, [place] [facility] 1.2.840.114 350.1.13.10 4.2.7.2.[id number] [facility] 2021-02-14 00:00:00 2021-02-14 00:00:00 (TEL) STLMLC STLMLC [id number] [facility] 2021-02-03 00:00:00 2021-02-03 00:00:00 (TEL) STLMLC STLMLC [id number] [facility] 2021-01-20 00:00:00 2021-01-20 00:00:00 (TEL) STLMLC STLMLC [id number] [facility] 2021-01-05 00:00:00 2021-01-05 00:00:00 (TEL) STLMLC STLMLC [id number] [facility] 2021-01-03 00:00:00 2021-01-03 00:00:00 OFFICE VISIT EST PT LEVEL 3 STLMLC STLMLC [id number] [facility] 2020-11-18 00:00:00 2020-11-18 00:00:00 (TEL) STLMLC STLMLC [id number] [facility] 2020-11-08 00:00:00 2020-11-08 00:00:00 Outpatient STLMLC STLMLC [id number] [facility] 2020-11-02 00:00:00 2020-11-02 00:00:00 Outpatient STLMLC STLMLC [id number] [facility] 2020-10-01 00:00:00 2020-10-01 00:00:00 Outpatient STLMLC STLMLC [id number] [facility] 2020-09-16 00:00:00 2020-09-16 00:00:00 Outpatient STLMLC STLMLC [id number] [facility] 2020-09-13 00:00:00 2020-09-13 00:00:00 Outpatient [facility] [id number] [facility] 2020-09-07 07:44:00 2020-09-07 10:00:00 Outpatient [facility] LAND [facility] [id number] [facility] 2020-09-07 07:44:00 2020-09-07 10:00:00 Outpatient JOHN LAND AMANDEEP [facility] [id number] [facility] 2020-08-02 00:00:00 2020-08-02 00:00:00 Outpatient STLMLC STLMLC [id number] [facility] 2020-08-02 00:00:00 2020-08-02 00:00:00 Outpatient STLMLC STLMLC [id number] [facility] 2020-07-29 00:00:00 2020-07-29 00:00:00 Outpatient STLMLC STLMLC [id number] [facility] 2020-07-29 00:00:00 2020-07-29 00:00:00 Outpatient STLMLC STLMLC [id number] [facility] 2020-07-28 00:00:00 2020-07-28 00:00:00 Outpatient STLMLC STLMLC [id number] [facility] 2020-07-27 00:00:00 2020-07-27 00:00:00 Outpatient STLMLC STLMLC [id number] [facility] 2020-06-30 00:00:00 2020-06-30 00:00:00 Outpatient STLMLC STLMLC [id number] [facility] 2020-04-13 00:00:00 2020-04-13 00:00:00 Outpatient R WINTER BANKS [facility] [id number] [facility] 2020-03-31 00:00:00 2020-03-31 00:00:00 Outpatient STLMLC STLMLC [id number] [facility] 2020-03-26 15:00:00 2020-03-26 15:00:00 Outpatient [facility] [id number] [facility] 2020-03-26 00:00:00 2020-03-26 00:00:00 Outpatient STLMLC STLMLC [id number] [facility] 2020-03-23 00:00:00 2020-03-23 00:00:00 Outpatient R AKINSIPE WINTER [facility] [id number] [facility] 2020-03-23 00:00:00 2020-03-23 00:00:00 Outpatient R AKINSIPEWINTER [facility] [id number] [facility] 2020-03-23 00:00:00 2020-03-23 00:00:00 Outpatient R AKINSIPEWINTER [facility] [id number] [facility] 2020-02-24 09:00:00 2020-02-24 09:00:00 Outpatient R AKINSIPE WINTER [facility] [id number] [facility] 2020-01-23 08:30:00 2020-01-23 08:30:00 Outpatient R AKINSIPE WINTER [facility] [id number] [facility] 2020-01-19 13:45:00 2020-01-19 13:45:00 Outpatient R CARMEN VALENCIA [facility] [id number] [facility] 2019-12-10 00:00:00 2019-12-10 00:00:00 Outpatient STLMLC STLMLC [id number] [facility] 2019-12-09 00:00:00 2019-12-09 00:00:00 [facility] [id number] 2019-12-04 11:04:00 2019-12-04 11:04:00 Outpatient [facility] [id number] [facility] 2019-12-03 00:00:00 2019-12-03 00:00:00 Telephone [place] NDVLADIMIR VISUAL SPECIALIST [facility] [id number] 2019-12-01 13:15:00 2019-12-01 13:15:00 Outpatient WINTER GOLDSTEIN [facility] [id number] [facility] 2019-12-01 08:20:00 2019-12-01 08:20:[address] [facility] [id number] [facility] 2019-11-25 08:45:00 2019-11-25 08:45:00 Outpatient R WINTER BANKS [facility] [id number] [facility] 2019-11-21 09:00:00 2019-11-21 09:00:00 Outpatient R WINTER BANKS [facility] [id number] [facility] 2019-08-05 09:40:00 2019-08-05 09:40:00 Outpatient [facility] [id number] [facility] 2019-07-29 15:15:00 2019-07-29 15:15:00 Outpatient R WINTER BANKS [facility] [id number] [facility] 2019-05-29 10:40:00 2019-05-29 10:40:[address] [facility] [id number] [facility] 2019-05-26 09:30:00 2019-05-26 09:30:00 Outpatient WINTER GOLDSTEIN [facility] [id number] [facility] 2019-05-19 09:42:00 2019-05-19 09:42:00 Outpatient [facility] [place] [facility] [id number] [facility] 2019-03-21 06:36:37 2019-03-21 23:59:00 Outpatient WINTER GOLDSTEIN [facility] [id number] [facility] 2018-08-02 13:45:00 2018-08-02 14:31:31 Outpatient Manuel MORRELL CELSA [facility] [id number] [facility] 2018-07-26 13:45:00 2018-07-26 13:45:00 Outpatient R [facility] [id number] [facility] 2016-02-29 15:15:00 2016-02-29 15:15:00 Outpatient CALIN LAYTON [id number] Saurabh Urbano Results Test Description Test Time Test Comments Results Result Co mments Source [facility] Medicalinfectious disease [id number] 00:00:00* Test Item Value Reference Range Interpretation Comme nts atopobium vaginae (test code = atopobium vaginae) 0.000 ppm 19.961-24.689 bvab 2,3 (bacterial vaginosi s associated bacteria 2, 3); mobiluncus spp (test code = bvab 2,3 (bacterial vaginosis associated bacteria 2, 3); mobiluncus spp) 0.000 ppm 19.961-24.689 kristel albicans, parapsilos is, tropicalis (test code = kristel albicans, parapsilosis, tropicalis) 27.894 ppm 19.961-30.770 A kristel glabrata (nakaseomyc es glabratus) (test code = kristel glabrata (nakaseomyces glabratus)) 0.000 ppm 23.000-32.138 kristel krusei (pichia kudriavzevii) (test code = kristel krusei (pichia kudriavzevii)) 0.000 ppm 23.000-32.271 chlamydia trachomatis (test code = chlamydia trachomatis) 0.000 ppm 23.000-31.467 gardnerella vaginalis (test code = gardnerella vaginalis) 0.000 ppm 19.961-24.689 herpes simplex virus 1 (test code = herpes simplex virus 1) 0.000 ppm 23.000-32.355 herpes simplex virus 2 (test code = herpes simplex virus 2) 0.000 ppm 23.000-31.433 megasphaera (types 1, 2) (te st code = megasphaera (types 1, 2)) 0.000 ppm 19.961-24.689 neisseria gonorrhoeae (test code = neisseria gonorrhoeae) 0.000 ppm 23.000-32.117 trichomonas vaginalis (test code = trichomonas vaginalis) 0.000 ppm 23.000-32.119 [facility] Medicalurinalysis, [id number] 09:57:52* Test Item Value Reference Range Interpretation Comme nts Leukocytes (test code = Leukocytes) Negative Nitrite (test code = Nitrite) negative Urobilinogen (test code = Urobilinogen) Normal Protein (test code = Protein) Negative pH (test code = pH) 6.0 Blood (test code = Blood) Negative Specific [place] (test code = Specific [place]) 1.015 Ketone (test code = Ketone) Negative Bilirubin (test code = Bilirubin) Negative Glucose (test code = Glucose) Negative Appearance (test code = Appearance) Clear Color (test code = Color) Yellow [facility] Medicalurinalysis, [id number] 10:39:00* Test Item Value Reference Range Interpretation Comme nts Leukocytes (test code = Leukocytes) Negative Nitrite (test code = Nitrite) negative Urobilinogen (test code = Urobilinogen) Normal Protein (test code = Protein) Negative pH (test code = pH) 6.0 Blood (test code = Blood) Non-Hemolyzed: Moderate Specific [place] (test code = Specific [place]) 1.020 Ketone (test code = Ketone) Negative Bilirubin (test code = Bilirubin) Negative Glucose (test code = Glucose) Negative Appearance (test code = Appearance) Cloudy Color (test code = Color) Dark Yellow [facility] - cancer history assessment [id number] 07:24:00* Test Item Value Reference Range Interpretation Comme nts [facility] - cancer history assessment result (test code = [facility] - cancer history assessment result) Meets criteria A [facility] Medical[facility]crete variation analysis overall [id number] 00:00:00* Test Item Value Reference Range Interpretation Comme nts bracanalysis and myrisk / note 2 tests (test code = bracanalysis and myrisk / note 2 tests) SIGNIFICANT CLINICAL HISTORY FINDING [facility] Medicalurinalysis, [id number] 14:03:00* Test Item Value Reference Range Interpretation Comme nts Leukocytes (test code = Leukocytes) Negative Nitrite (test code = Nitrite) negative Urobilinogen (test code = Urobilinogen) Normal Protein (test code = Protein) Negative pH (test code = pH) 6.0 Blood (test code = Blood) Negative Specific [place] (test code = Specific [place]) 1.005 Ketone (test code = Ketone) Negative Bilirubin (test code = Bilirubin) Negative Glucose (test code = Glucose) Negative Appearance (test code = Appearance) Clear Color (test code = Color) Pale Yellow [facility] MedicalDehydroepiandrosterone sulfate (DHEA-S) [Mass/volume] in Serum or [id number] 00:00:00* Test Item Value Reference Range Interpretation Comme nts DHEA-S (test code = DHEA-S) 190.0 ug/dL 98.8-340.0 [facility] MedicalFollitropin [Units/volume] in Serum or [id number] 00:00:00* Test Item Value Reference Range Interpretation Comme nts FSH (test code = FSH) 17.6 mIU/mL [facility] MedicalThyrotropin [Units/volume] in Serum or [id number] 00:00:00* Test Item Value Reference Range Interpretation Comme nts TSH (test code = TSH) 1.650 uIU/mL 0.500-4.530 [facility] MedicalComprehensive metabolic 2000 panel - Serum or [id number] 00:00:00* Test Item Value Reference Range Interpretation Comme nts sodium (test code = sodium) 142 mmol/L 136-145 potassium (test code = potassium) 4.2 mmol/L 3.5-5.5 chloride (test code = chloride) 105 mmol/L 98-107 CO2 (test code = CO2) 23 mmol/ L 23-31 glucose (test code = glucose) 87 mg/dL 70-99 BUN (test code = BUN) 7 mg/dL 6-20 creatinine (test code = creatinine) 0.7 mg/dL 0.5-0.9 calcium (test code = calcium) 9.5 mg/dL 8.6-10.4 total protein (test code = total protein) 7.3 g/dL 6.0-8.3 albumin (test code = albumin) 4.6 g/dL 3.5-5.2 total bilirubin (test code = total bilirubin) 0.4 mg/dL 0.0-1.2 alkaline phosphatase (test code = alkaline phosphatase) 64 U/L 44-147 AST (SGOT) (test code = AST (SGOT)) 21 U/L 0-32 ALT (SGPT) (test code = ALT (SGPT)) 30 U/L 0-33 globulin (test code = globulin) 2.7 g/dL 1.7-3.7 A/G ratio (test code = A/G ratio) 1.7 calc. 1.1-2.9 BUN/creatinine ratio (test code = BUN/creatinine ratio) 10.0 calc 10.0-28.0 eGFR (test code = eGFR) 108.623 mL/min/1.73A? >60.000 [facility] MedicalTriiodothyronine (T3) Free [Mass/volume] in Serum or Plasma 2024-01-28 00:00:00* Test Item Value Reference Range Interpretation Comme nts free T3 (test code = free T3) 2.8 pg/mL 2.0-4.7 [facility] MedicalEstradiol (E2) [Mass/volume] in Serum or [id number] 00:00:00 * Test Item Value Reference Range Interpretation Comme nts estradiol (test code = estradiol) 34.4 pg/mL 6.1-91.9 [facility] MedicalTestosterone free and total panel [Mass/volume] - Serum or Plasma 2024-01-28 00:00:00* Test Item Value Reference Range Interpretation Comme nts free testosterone (test code = free testosterone) 0.24 NG/dL 0.12-0.64 sex hormone binding globulin (test code = sex hormone binding globulin) 69.20 nmol/L 10.00-57.00 H testosterone (test code = testosterone) 22.1 NG/dL 8.4-48.1 [facility] Najvptc78-Uhwwgakjlcqtmm D3+25-Hydroxyvitamin D2 [Mass/volume] in Serum or [id number] 00:00:00* Test Item Value Reference Range Interpretation Comme nts vitamin D III (test code = v itamin D III) 20.6 NG/mL 32.0-100.0 L [facility] MedicineLipid 1996 panel - Serum or [id number] 00:00:00* Test Item Value Reference Range Interpretation Comme nts cholesterol (test code = cholesterol) 224 mg/dL 0-200 H triglycerides (test code = triglycerides) 95 mg/dL 10-150 HDL cholesterol (test code = HDL cholesterol) 66 mg/dL >50 HDL risk factor (test code = HDL risk factor) 3.4 calc. VLDL cholesterol (test code = VLDL cholesterol) 19 calc dldl (test code = dldl) 141 mg/dL <100 H [facility] MedicineCBC panel - Blood by Automated [id number] 00:00:00* Test Item Value Reference Range Interpretation Comme nts WBC (test code = WBC) 4.2 10 3.7-12.0 RBC (test code = RBC) 4.26 10 3.60-5.50 HGB (test code = HGB) 13.3 g/dL 11.5-15.6 HCT (test code = HCT) 40.4 % 34.5-46.5 MCV (test code = MCV) 94.8 um 80.0-102.0 MCH (test code = MCH) 31.3 pg 25.0-34.1 MCHC (test code = MCHC) 33.0 g/dL 29.0-35.0 RDW (test code = RDW) 14.3 % 10.9-16.9 plt (test code = plt) 285 10 136-392 MPV (test code = MPV) 8.5 um 7.4-11.1 gran % (test code = gran %) 44.4 % 36.0-78.0 lymph % (test code = lymph %) 40.8 % 12.0-48.0 mono % (test code = mono %) 8.0 % 0.0-13.0 eos % (test code = eos %) 6 % 0-8 baso % (test code = baso %) 1 % 0-2 gran # (test code = gran #) 1.9 10 1.2-6.8 lymph # (test code = lymph #) 1.7 10 1.2-3.2 mono # (test code = mono #) 0.3 10 0.3-0.8 eos # (test code = eos #) 0.2 10 0.0-0.4 baso # (test code = baso #) 0.0 10 0.0-0.2 [facility] MedicalCULTURE, [id number] 00:00:00* Test Item Value Reference Range Interpretation Comme nts CULTURE, URINE (test code = 630-4) SPECIMEN NUMBER: [id number] COMPREHENSIVE METABOLIC [id number] 00:00:00* Test Item Value Reference Range Interpretation Comme nts NUCLEATED RBCS (test code = 13961-2) 0.0 /100 WBC'S See_Comment [Automated message] The system which generated this result transmitted reference range: 0.0 /100 WBC'S. The reference range was not used to interpret this result as normal/abnormal. ABSOLUTE EOSINOPHILS (test code = 65189-5) 0.18 K/UL See_Comment [Automated message] The system which generated this result transmitted reference range: 0.00-0.50 K/UL. The reference range was not used to interpret this result as normal/abnormal. ABSOLUTE LYMPHOCYTES (test code = 02591-6) 1.96 K/UL See_Comment [Automated message] The system which generated this result transmitted reference range: 1.00-4.00 K/UL. The reference range was not used to interpret this result as normal/abnormal. ABSOLUTE MONOCYTES (test code = 91617-4) 0.49 K/UL See_Comment [Automated message] The system which generated this result transmitted reference range: 0.20-1.00 K/UL. The reference range was not used to interpret this result as normal/abnormal. ABSOLUTE NEUTROPHILS (test code = 73143-0) 2.50 K/UL See_Comment [Automated message] The system which generated this result transmitted reference range: 1.50-7.50 K/UL. The reference range was not used to interpret this result as normal/abnormal. BASOPHILS (test code = 57040-4) 1.0 % EOSINOPHILS (test code = 63565-3) 3.5 % HEMATOCRIT (test code = 25040-4) 43.0 % See_Comment [Automated message] The system which generated this result transmitted reference range: 34.0-45.0 %. The reference range was not used to interpret this result as normal/abnormal. HEMOGLOBIN (test code = 718-7) 14.2 G/DL See_Comment [Automated message] The system which generated this result transmitted reference range: 11.5-15.5 G/DL. The reference range was not used to interpret this result as normal/abnormal. LYMPHOCYTES (test code = 44123-2) 37.8 % MCH (test code = 76456-7) 32.2 PG See_Comment [Automated message] The system which generated this result transmitted reference range: 25.0-33.0 PG. The reference range was not used to interpret this result as normal/abnormal. MCHC (test code = 83219-4) 33.0 G/DL See_Comment [Automated message] The system which generated this result transmitted reference range: 31.0-36.0 G/DL. The reference range was not used to interpret this result as normal/abnormal. MCV (test code = 98700-1) 97.5 fL See_Comment [Automated message] The system which generated this result transmitted reference range: 80.0-99.0 fL. The reference range was not used to interpret this result as normal/abnormal. MONOCYTES (test code = 32211-8) 9.4 % NEUTROPHILS (test code = 05143-0) 48.1 % PLATELET COUNT (test code = 97701-8) 294 K/UL See_Comment [Automated message] The system which generated this result transmitted reference range: 130-400 K/UL. The reference range was not used to interpret this result as normal/abnormal. RBC (test code = 67422-3) 4.41 M/UL See_Comment [Automated message] The system which generated this result transmitted reference range: 3.80-5.40 M/UL. The reference range was not used to interpret this result as normal/abnormal. RDW (test code = 68029-6) 13.0 % See_Comment [Automated message] The system which generated this result transmitted reference range: 11.5-15.0 %. The reference range was not used to interpret this result as normal/abnormal. WBC (test code = 43238-7) 5.2 K/UL See_Comment [Automated message] The system which generated this result transmitted reference range: 3.5-11.0 K/UL. The reference range was not used to interpret this result as normal/abnormal. URIC ACID (test code = 2501-5) 5.0 MG/DL See_Comment [Automated message] The system which generated this result transmitted reference range: 2.7-6.1 MG/DL. The reference range was not used to interpret this result as normal/abnormal. HEMOGLOBIN A1c (test code = 4548-4) 5.3 % See_Comment [Automated message] The system which generated this result transmitted reference range: 4.2-5.6 %. The reference range was not used to interpret this result as normal/abnormal. TSH REFLEX TO FREE T4 (test code = 96364-6) 3.010 UIU/ML See_Comment [Automated message] The system which generated this result transmitted reference range: 0.400-4.100 UIU/ML. The reference range was not used to interpret this result as normal/abnormal. APPEARANCE (test code = 5767-9) CLEAR CLEAR BACTERIA (test code = 93205-2) 3+ NONE SEEN A BILIRUBIN (test code = 5770-3) NEGATIVE NEGATIVE CASTS, HYALINE (test code = 65449-2) NONE SEEN NONE-TRACE COLOR (test code = 5778-6) YELLOW YELLOW-STRAW EPITHELIAL CELLS (test code = 87693-4) 6-10 /HPF See_Comment [Automated message] The system which generated this result transmitted reference range: 0-10 /HPF. The reference range was not used to interpret this result as normal/abnormal. GLUCOSE (test code = 5792-7) NEGATIVE NEGATIVE KETONES (test code = 5797-6) NEGATIVE NEGATIVE LEUKOCYTE ESTERASE (test code = 5799-2) NEGATIVE NEGATIVE NITRITE (test code = 5802-4) NEGATIVE NEGATIVE OCCULT BLOOD (test code = 63322-8) NEGATIVE NEGATIVE pH (test code = 5803-2) 5.5 5.0-9.0 PROTEIN (test code = 94822-1) NEGATIVE NEGATIVE RED BLOOD CELLS (test code = 97496-0) 0-2 /HPF See_Comment [Automated message] The system which generated this result transmitted reference range: 0-2 /HPF. The reference range was not used to interpret this result as normal/abnormal. SPECIFIC GRAVITY (test code = 5811-5) 1.015 1.005-1.035 UROBILINOGEN (test code = 26985-6) 0.2 MG/DL See_Comment [Automated message] The system which generated this result transmitted reference range: <=2.0 MG/DL. The reference range was not used to interpret this result as normal/abnormal. WHITE BLOOD CELLS (test code = 90927-4) 0-5 /HPF See_Comment [Automated message] The system which generated this result transmitted reference range: 0-5 /HPF. The reference range was not used to interpret this result as normal/abnormal. CALC LDL CHOL (test code = 85982-0) 102 MG/DL See_Comment H [Automated message] The system which generated this result transmitted reference range: <100 MG/DL. The reference range was not used to interpret this result as normal/abnormal. CHOLESTEROL (test code = 2093-3) 190 MG/DL See_Comment [Automated message] The system which generated this result transmitted reference range: <200 MG/DL. The reference range was not used to interpret this result as normal/abnormal. HDL CHOLESTEROL (test code = 2085-9) 67 MG/DL See_Comment [Automated message] The system which generated this result transmitted reference range: >39 MG/DL. The reference range was not used to interpret this result as normal/abnormal. RISK RATIO LDL/HDL (test code = 97692-1) 1.52 RATIO See_Comment [Automated message] The system which generated this result transmitted reference range: <3.22 RATIO. The reference range was not used to interpret this result as normal/abnormal. TRIGLYCERIDES (test code = 2571-8) 114 MG/DL See_Comment [Automated message] The system which generated this result transmitted reference range: <150 MG/DL. The reference range was not used to interpret this result as normal/abnormal. ALBUMIN (test code = 1751-7) 4.3 G/DL See_Comment [Automated message] The system which generated this result transmitted reference range: 3.5-5.2 G/DL. The reference range was not used to interpret this result as normal/abnormal. ALKALINE PHOSPHATASE (test code = 6768-6) 67 U/L See_Comment [Automated message] The system which generated this result transmitted reference range: 40-116 U/L. The reference range was not used to interpret this result as normal/abnormal. BILIRUBIN, TOTAL (test code = 1975-2) 0.6 MG/DL See_Comment [Automated message] The system which generated this result transmitted reference range: <=1.2 MG/DL. The reference range was not used to interpret this result as normal/abnormal. BUN (test code = 3094-0) 5 MG/DL See_Comment L [Automated message] The system which generated this result transmitted reference range: 6-20 MG/DL. The reference range was not used to interpret this result as normal/abnormal. CALCIUM (test code = 88454-1) 9.4 MG/DL See_Comment [Automated message] The system which generated this result transmitted reference range: 8.5-10.5 MG/DL. The reference range was not used to interpret this result as normal/abnormal. CALC A/G RATIO (test code = 1759-0) 1.4 RATIO See_Comment [Automated message] The system which generated this result transmitted reference range: 1.0-2.6 RATIO. The reference range was not used to interpret this result as normal/abnormal. CALC BUN/CREAT (test code = 3097-3) 7 RATIO See_Comment [Automated message] The system which generated this result transmitted reference range: 6-28 RATIO. The reference range was not used to interpret this result as normal/abnormal. CALC GLOBULIN (test code = 35608-0) 3.0 G/DL See_Comment [Automated message] The system which generated this result transmitted reference range: 1.9-3.7 G/DL. The reference range was not used to interpret this result as normal/abnormal. CARBON DIOXIDE (test code = 1963-8) 25 MEQ/L See_Comment [Automated message] The system which generated this result transmitted reference range: 19-31 MEQ/L. The reference range was not used to interpret this result as normal/abnormal. CHLORIDE (test code = 2075-0) 102 MEQ/L See_Comment [Automated message] The system which generated this result transmitted reference range: 95-107 MEQ/L. The reference range was not used to interpret this result as normal/abnormal. CREATININE (test code = 2160-0) 0.74 MG/DL See_Comment [Automated message] The system which generated this result transmitted reference range: 0.60-1.30 MG/DL. The reference range was not used to interpret this result as normal/abnormal. eGFR (2020 CKD-EPI) (test code = 12899-0) 102 ML/MIN/1.73 See_Comment [Automated message] The system which generated this result transmitted reference range: >60 ML/MIN/1.73. The reference range was not used to interpret this result as normal/abnormal. GLUCOSE (test code = 1558-6) 98 MG/DL See_Comment [Automated message] The system which generated this result transmitted reference range: 70-99 MG/DL. The reference range was not used to interpret this result as normal/abnormal. POTASSIUM (test code = 2823-3) 4.0 MEQ/L See_Comment [Automated message] The system which generated this result transmitted reference range: 3.5-5.4 MEQ/L. The reference range was not used to interpret this result as normal/abnormal. PROTEIN, TOTAL (test code = 2885-2) 7.3 G/DL See_Comment [Automated message] The system which generated this result transmitted reference range: 6.1-8.3 G/DL. The reference range was not used to interpret this result as normal/abnormal. AST (test code = 1920-8) 15 U/L See_Comment [Automated message] The system which generated this result transmitted reference range: 9-40 U/L. The reference range was not used to interpret this result as normal/abnormal. ALT (test code = 1742-6) 11 U/L See_Comment [Automated message] The system which generated this result transmitted reference range: 5-40 U/L. The reference range was not used to interpret this result as normal/abnormal. SODIUM (test code = 2951-2) 139 MEQ/L See_Comment [Automated message] The system which generated this result transmitted reference range: 133-146 MEQ/L. The reference range was not used to interpret this result as normal/abnormal. CULTURE, [id number] 10:03:11SPECIMEN NUMBER: [id number] CULTURE, URINE SPECIMEN NUMBER: [id number] SPECIMEN COMMENT: URINE SOURCE: URINE REPORT STATUS: FINAL FINAL REPORT: 07/06/2022 >100,000 CFU/ML MIXED MICROBIAL POPULATION PRESENT, NO PREDOMINATING ORGANISMS;PROBABLE CONTAMINANTS. [facility] has important pathology staff changes effective 05/17/2022. New pathology staff will provide uninterrupted, excellent patient care and clinical consultation. See URL: [email or web address] UNLESS OTHERWISE INDICATED, ALL TESTING PERFORMED AT [facility] [address] [place] [id number] [employer] MA[employer]: DAGOBERTO GONZALES M.D. [place] NUMBER [id number] [facility] [place] [id number] URINALYSIS W/O SPECIFIC [id number] 15:28:00* Test Item Value Reference Range Interpretation Comme nts POCT PH U (test code = 3254) 5 mg/dl 5-8 POCT U LEUK EST (test code = 3263) neg Negative - Negative POCT U NIT (test code = 3262) neg Negative - Negati ve POCT U PROT (test code = 3259) trace Negative - Negat bruna POCT U GLU (test code = 3256) neg Negative - Negati ve POCT U KETONE (test code = 3258) 2+ Negative - Neg ative POCT U BLD (test code = 3257) trace Negative - Negati ve [facility] [id number] 15:28:00* Test Item Value Reference Range Interpretation Comme nts POCT PH U (test code = 3254) 5 mg/dl 5-8 POCT U LEUK EST (test code = 3263) neg Negative - Negative POCT U NIT (test code = 3262) neg Negative - Negati ve POCT U PROT (test code = 3259) trace Negative - Negat bruna POCT U GLU (test code = 3256) neg Negative - Negati ve POCT U KETONE (test code = 3258) 2+ Negative - Neg ative POCT U BLD (test code = 3257) trace Negative - Negati ve [facility]CIFIC [id number] 15:28:00* Test Item Value Reference Range Interpretation Comme nts POCT PH U (test code = 3254) 5 mg/dl 5-8 POCT U LEUK EST (test code = 3263) neg Negative - Negative POCT U NIT (test code = 3262) neg Negative - Negati ve POCT U PROT (test code = 3259) trace Negative - Negat bruna POCT U GLU (test code = 3256) neg Negative - Negati ve POCT U KETONE (test code = 3258) 2+ Negative - Neg ative POCT U BLD (test code = 3257) trace Negative - Negati ve [facility] URINALYSIS W/O SPECIFIC [id number] 15:28:00* Test Item Value Reference Range Interpretation Comme nts POCT PH U (test code = 3254) 5 mg/dl 5-8 POCT U LEUK EST (test code = 3263) neg Negative - Negative POCT U NIT (test code = 3262) neg Negative - Negati ve POCT U PROT (test code = 3259) trace Negative - Negat bruna POCT U GLU (test code = 3256) neg Negative - Negati ve POCT U KETONE (test code = 3258) 2+ Negative - Neg ative POCT U BLD (test code = 3257) trace Negative - [facility]ati ve [facility] [id number] 15:28:00* Test Item Value Reference Range Interpretation Comme nts POCT PH U (test code = 3254) 5 mg/dl 5-8 POCT U LEUK EST (test code = 3263) neg Negative - Negative POCT U NIT (test code = 3262) neg Negative - Negati ve POCT U PROT (test code = 3259) trace Negative - Negat bruna POCT U GLU (test code = 3256) neg Negative - Negati ve POCT U KETONE (test code = 3258) 2+ Negative - Neg ative POCT U BLD (test code = 3257) trace Negative - Negati ve [facility] [id number] 15:28:00* Test Item Value Reference Range Interpretation Comme nts POCT PH U (test code = 3254) 5 mg/dl 5-8 POCT U LEUK EST (test code = 3263) neg Negative - Negative POCT U NIT (test code = 3262) neg Negative - Negati ve POCT U PROT (test code = 3259) trace Negative - Negat bruna POCT U GLU (test code = 3256) neg Negative - Negati ve POCT U KETONE (test code = 3258) 2+ Negative - Neg ative POCT U BLD (test code = 3257) trace Negative - Negati ve [facility] URINALYSIS W/O SPECIFIC [id number] 15:28:00* Test Item Value Reference Range Interpretation Comme nts POCT PH U (test code = 3254) 5 mg/dl 5-8 POCT U LEUK EST (test code = 3263) neg Negative - Negative POCT U NIT (test code = 3262) neg Negative - Negati ve POCT U PROT (test code = 3259) trace Negative - Negat bruna POCT U GLU (test code = 3256) neg Negative - Negati ve POCT U KETONE (test code = 3258) 2+ Negative - Neg ative POCT U BLD (test code = 3257) trace Negative - Negati ve [facility] URINALYSIS W/O SPECIFIC [id number] 15:28:00* Test Item Value Reference Range Interpretation Comme nts POCT PH U (test code = 3254) 5 mg/dl 5-8 POCT U LEUK EST (test code = 3263) neg Negative - Negative POCT U NIT (test code = 3262) neg Negative - Negati ve POCT U PROT (test code = 3259) trace Negative - Negat bruna POCT U GLU (test code = 3256) neg Negative - Negati ve POCT U KETONE (test code = 3258) 2+ Negative - Neg ative POCT U BLD (test code = 3257) trace Negative - Negati ve [facility] URINALYSIS W/O SPECIFIC [id number] 14:38:00* Test Item Value Reference Range Interpretation Comme nts POCT PH U (test code = 3254) 7 mg/dl 5-8 POCT U LEUK EST (test code = 3263) Trace Negative - Negative POCT U NIT (test code = 3262) Neg Negative - Negati ve POCT U PROT (test code = 3259) Trace Negative - Negat bruna POCT U GLU (test code = 3256) Neg Negative - Negati ve POCT U KETONE (test code = 3258) None Negative - Neg ative POCT U BLD (test code = 3257) Trace Negative - Negati ve [facility] URINALYSIS W/O SPECIFIC [id number] 14:38:00* Test Item Value Reference Range Interpretation Comme nts POCT PH U (test code = 3254) 7 mg/dl 5-8 POCT U LEUK EST (test code = 3263) Trace Negative - Negative POCT U NIT (test code = 3262) Neg Negative - Negati ve POCT U PROT (test code = 3259) Trace Negative - Negat bruna POCT U GLU (test code = 3256) Neg Negative - Negati ve POCT U KETONE (test code = 3258) None Negative - Neg ative POCT U BLD (test code = 3257) Trace Negative - Negati ve [facility] URINALYSIS W/O SPECIFIC [id number] 20:35:00* Test Item Value Reference Range Interpretation Comme nts POCT PH U (test code = 3254) 5 mg/dl 5-8 POCT U LEUK EST (test code = 3263) negative Negative - Negative POCT U NIT (test code = 3262) negative Negative - Negati ve POCT U PROT (test code = 3259) trace Negative - Negat bruna POCT U GLU (test code = 3256) negative Negative - Negati ve POCT U KETONE (test code = 3258) negative Negative - Neg ative POCT U BLD (test code = 3257) negative Negative - Negati ve [facility] URINALYSIS W/O SPECIFIC [id number] 20:35:00* Test Item Value Reference Range Interpretation Comme nts POCT PH U (test code = 3254) 5 mg/dl 5-8 POCT U LEUK EST (test code = 3263) negative Negative - Negative POCT U NIT (test code = 3262) negative Negative - Negati ve POCT U PROT (test code = 3259) trace Negative - Negat bruna POCT U GLU (test code = 3256) negative Negative - Negati ve POCT U KETONE (test code = 3258) negative Negative - Neg ative POCT U BLD (test code = 3257) negative Negative - Negati ve [facility] SCR MARLEEN BILAT W/CAD3D SCR MARLENE BILAT W/CAD
--- NOTE | 2024-07-27 10:21 | ER ---
Nurse's Notes [facility] Name: Gali Sagastume Age: 44 yrs Sex: Female : 1980 Arrival Date: 07/27/2024 Time: 10:02 Bed 14 Private MD: Diagnosis: Other hemorrhoids Presentation: 07/27 10:21 Chief complaint: Patient states: rectal pain and "black area" that began yesterday. ss Coronavirus screen: Client denies travel out of the [place] in the last 14 days. Ebola Screen: Patient denies exposure to infectious person. Patient denies travel to an Ebola-affected area in the 21 days before illness onset. Initial Sepsis Screen: Does the patient meet any 2 criteria? No. Patient's initial sepsis screen is negative. Does the patient have a suspected source of infection? No. Patient's initial sepsis screen is negative. Risk Assessment: Do you want to hurt yourself or someone else? Patient reports no desire to harm self or others. Onset of symptoms was July 26, 2024. 10:21 Method Of Arrival: Ambulatory ss 10:21 Acuity: LAINEY 5 ss Historical: - Allergies: 10:23 Prilosec (Hives); ss 10:23 Methylprednisolone; ss - PMHx: 10:23 GERD; hiatal hernia; endometriosis (hiatal hernia); ss - PSHx: 10:23 hysterectomy (hiatal hernia); ss - Immunization history:: Adult Immunizations up to date. - Infectious Disease History:: Denies. - Social history:: Smoking status: Patient denies any tobacco usage or history of. Screenin:19 [facility] ED Fall Risk Assessment (Adult) History of falling in the last 3 months, kc6 including since admission No falls in past 3 months (0 pts) Confusion or Disorientation No (0 pts) Intoxicated or Sedated No (0 pts) Impaired Gait No (0 pts) Mobility Assist Device Used No (0 pt) Altered Elimination No (0 pt) Score/Fall Risk Level 0 - 2 = Low Risk Oriented to surroundings. Abuse screen: Denies threats or abuse. Denies injuries from another. Nutritional screening: No deficits noted. Tuberculosis screening: No symptoms or risk factors identified. Assessment: 10:28 General: Appears in no apparent distress. comfortable, well groomed, well developed, kc6 Behavior is calm, cooperative, appropriate for age. Pain: Complains of pain in gluteal cleft. Neuro: Level of Consciousness is awake, alert, obeys commands, Oriented to person, place, time, situation, Appropriate for age. Cardiovascular: Capillary refill < 3 seconds. Respiratory: Airway is patent Trachea midline Respiratory effort is even, unlabored, Respiratory pattern is regular, symmetrical. GI: Rectal exam: Hemorrhoids noted, Bowel sounds present X 4 quads. Abd is soft and non tender X 4 quads. Reports rectal pain and drainage Patient currently denies abdominal pain, diarrhea, nausea, vomiting. : No signs and/or symptoms were reported regarding the genitourinary system. Urine is clear. EENT: No signs and/or symptoms were reported regarding the EENT system. Derm: No signs and/or symptoms reported regarding the dermatologic system. Skin is intact, is healthy with good turgor, Skin is pink, warm \\T\\ dry. Musculoskeletal: No signs and/or symptoms reported regarding the musculoskeletal system. Circulation, motion, and sensation intact. Range of motion: intact in all extremities. Vital Signs: 10:21 BP 136 / 89; Pulse 89; Resp 17; Temp 98.3(O); Pulse Ox 99% on R/A; Weight 86.18 kg; ss Height 5 ft. 4 in. ; Pain 6/10; 10:21 Body Mass Index 32.61 (86.18 kg, 162.56 cm) ss 10:21 Pain Scale: Adult ss ED Course: 10:05 Patient arrived in ED. mr 10:06 Tyra Bledsoe FNP-C is [facility]. kb 10:06 Sonny Godoy MD is Attending Physician. kb 10:15 Gisell Begum RN is Primary Nurse. kc6 10:18 Patient has correct armband on for positive identification. Placed in gown. Bed in low kc6 position. Call light in reach. Side rails up X 1. Adult w/ patient. Pulse ox on. NIBP on. Door closed. Noise minimized. Lights dimmed. Warm blanket given. Pillow given. Verbal reassurance given. 10:19 Patient maintains SpO2 saturation greater than 95% on room air. kc6 10:23 Triage completed. ss 10:23 Arm band placed on right wrist. ss 10:30 No provider procedures requiring assistance completed. Patient did not have IV access kc6 during this emergency room visit. Administered Medications: No medications were administered Medication: 10:30 VIS not applicable for this client. kc6 Outcome: 10:21 Discharge ordered by . rima 10:30 Discharged to home ambulatory, with significant other, kc6 10:30 Condition: good 10:30 Discharge instructions given to patient, significant other, Instructed on discharge instructions, follow up and referral plans. Demonstrated understanding of instructions, follow-up care, 10:31 Patient left the ED. kc6 Signatures: Tyra Bledsoe, JANA-C HAND SHOES SEWER-Elizabeth Leonardo, Reg Reg mr Denisha Perdue, RN RN ss Gisell Begum RN RN kc6
--- NOTE | 2024-07-27 10:21 | EDPHYS ---
Physician Documentation [facility] Name: Gali Sagastume Age: 44 yrs Sex: Female : 1980 Arrival Date: 07/27/2024 Time: 10:02 Bed 14 Private MD: ED Physician Sonny Godoy HPI: 07/27 10:48 This 44 yrs old Female presents to ER via Ambulatory with complaints of Rectal Pain, kb Vaginal Discharge. 10:48 Pt is a 44 year old female who presents for rectal pain that started last night. Denies kb fever, abd pain, n/v/d. . Historical: - Allergies: 10:23 Prilosec (Hives); ss 10:23 Methylprednisolone; ss - PMHx: 10:23 GERD; hiatal hernia; endometriosis (hiatal hernia); ss - PSHx: 10:23 hysterectomy (hiatal hernia); ss - Immunization history:: Adult Immunizations up to date. - Infectious Disease History:: Denies. - Social history:: Smoking status: Patient denies any tobacco usage or history of. ROS: 10:47 Constitutional: As per HPI kb Exam: 10:47 Constitutional: This is a well developed, well nourished patient who is awake, alert, kb and in no acute distress. Head/Face: Normocephalic, atraumatic. ENT: Moist Mucous membranes Cardiovascular: Regular rate Respiratory: Respirations even and unlabored. No increased work of breathing. Talking in full sentences Abdomen/GI: Soft, non-tender. No distention Skin: Warm, dry with normal turgor. Normal color. MS/ Extremity: Pulses equal, no cyanosis. Neurovascular intact. Full, normal range of motion. Neuro: Awake and alert, GCS 15, oriented to person, place, time, and situation. 10:47 Abdomen/GI: Rectal exam: hemorrhoid(s), external, with inflammation, with pain, at 7 o'clock. Vital Signs: 10:21 BP 136 / 89; Pulse 89; Resp 17; Temp 98.3(O); Pulse Ox 99% on R/A; Weight 86.18 kg; ss Height 5 ft. 4 in. ; Pain 6/10; 10:21 Body Mass Index 32.61 (86.18 kg, 162.56 cm) ss 10:21 Pain Scale: Adult ss MDM: 10:06 Medical Screening Exam initiated kb 10:47 Differential diagnosis: hemorrhoids, fissure, abscess. Data reviewed: vital signs, kb nurses notes. Test considered but Not performed: CT: ct abd considered but pt has no abd tenderness. Counseling: I had a detailed discussion with the patient and/or guardian regarding the historical points, exam findings, and any diagnostic results supporting the discharge/admit diagnosis, the need for outpatient follow up, a family practitioner, to return to the emergency department if symptoms worsen or persist or if there are any questions or concerns that arise at home. Administered Medications: No medications were administered Disposition: 12:14 Co-signature as Attending Physician, Sonny Godoy MD I reviewed the patient's care rn provided by the Advanced Practice Provider and agree with the diagnosis and treatment plan. Disposition Summary: 07/27/24 10:21 Discharge Ordered Notes: Location: Home kb Condition: Stable kb Diagnosis - Other hemorrhoids kb Followup: kb - With: Emergency Department - When: As needed - Reason: Worsening of condition Followup: kb - With: Private Physician - When: 2 - 3 days - Reason: Recheck today's complaints, Continuance of care, Re-evaluation by your physician Discharge Instructions: - Discharge Summary Sheet kb - High-Fiber Eating Plan kb - Hemorrhoids, [id number] kb Forms: - Medication Reconciliation Form kb - Antibiotic Education kb - Prescription Opioid Use kb - Patient Portal Instructions kb - Leadership Thank You Letter kb Signatures: Tyra Bledsoe, FINANCE INSURANCE MANAGER-C FINANCE INSURANCE MANAGER-Ckb Sonny Godoy MD MD rn Blanchard, Shelby, RN RN ss Campbell, Kaitlyn RN RN kc6 Corrections: (The following items were deleted from the chart) 10:48 10:47 Abdomen/GI: Rectal exam: hemorrhoid(s), external, with inflammation, with pain, kbkb
[2024-07-27 10:35] VITALS: BP 136/89; TEMP 98.3; O2SAT 99
== END 2024-07-27 10:31 | disposition home or self-care (01) ==
LOC: ER 10:02
DX: K64.8 Other hemorrhoids (principal)
CPT/HCPCS: 99283